=== PATIENT | male | born 1970 | race Two or more races ===

== ENCOUNTER 2020-03-15 13:03 | Inpatient (IN) | payer BC, OTHER ==
[~2020-03-15] VITALS: Ht 175.3 cm; Wt 98.6 kg
[2020-03-15 13:41] LABS: Urine Bacteria NONE SEEN /hpf (None Seen); Urine Blood Negative /uL (Negative); Urine Specific Gravity 1.023 (1.001-1.035); Urine WBC 4 /hpf (0 - 3)
[2020-03-15 13:51] LABS: Basophils # (auto) 0.2 10 ^3/uL (0-0.2); Basophils % (auto) 1.1 % (0.0-2.0); Eosinophils # (auto) 0.2 10 ^3/uL (0-0.8); Eosinophils % (auto) 1.4 % (0.0-7.0); Hematocrit 41.2 % (41.0-53.0); Lymphocytes # (auto) 1.4 10 ^3/uL (0.4-5.4); Lymphocytes % (auto) 8.7 % (10.0-50.0); Mean Corpuscular Hemoglobin 29.4 pg (28.0-32.0); Mean Corpuscular Volume 86.5 fL (80.0-100.0); Monocytes # (auto) 2.3 10 ^3/uL (0-1.3); Monocytes % (auto) 13.8 % (0.0-12.0); Neutrophils # (auto) 12.3 10 ^3/uL (1.6-8.6); Nucleated Red Blood Cells % 0.1 %; Platelet Count (auto) 200 10^3/uL (140-450); Red Blood Cells 4.77 10^6/uL (4.5-5.90); Red Cell Distribution Width 14.3 % (11.8-14.3); White Blood Cell 16.4 10^3/uL (4.4-10.8)
[2020-03-15 14:10] LABS: Albumin 2.9 g/dL (3.4-5.0); BUN/Creatinine Ratio 9.6; Calcium 9.3 mg/dL (8.5-10.1); Potassium 3.9 mmol/L (3.5-5.1)
[2020-03-15 14:13] LABS: Bilirubin, Total 7.1 mg/dL (0.2-1.0)
[2020-03-15] MEDS ORDERED: GASTROGRAFIN 30 ML SOL ONE (14:27)
[2020-03-15] MEDS ORDERED: MORPHINE SULFATE 4 MG/ML SYR/VIAL IV ONE (14:45)
[2020-03-15] MEDS ORDERED: ONDANSETRON HCL 4 MG/2 ML VIAL IV ONE (14:45)
[2020-03-15 15:43] LABS: Cholesterol 177 mg/dL (< 200); HDL Cholesterol 10 mg/dL (40-59); LDL Cholesterol 130 mg/dL (< 100); Lipase 173 U/L (73-393); Triglycerides 191 mg/dL (< 150)
[2020-03-15] MEDS ORDERED: IOHEXOL 300 MG/ML 100ML BOTTLE IJ ONE (16:31)
[2020-03-15] MEDS ORDERED: MORPHINE SULF INJ 2 MG/ML SYRINGE 1ML IV PRN ×2 (18:00→18:15)
[2020-03-15] MEDS ORDERED: NITROGLYCERIN 0.4 MG SL TAB SL PRN ×2 (18:00→18:15)
[2020-03-15] MEDS ORDERED: ACETAMINOPHEN 325 MG TAB PO PRN (18:15)
[2020-03-15] MEDS ORDERED: HYDROmorphone HCL 2 MG/ML VL IV PRN (18:15)
[2020-03-15] MEDS ORDERED: PANTOPRAZOLE 40 MG/10 ML VIAL INJ IV ONE (18:15)
[2020-03-15] MEDS ORDERED: LORazepam 0.5 MG TAB PO PRN (18:15)
[2020-03-15] MEDS ORDERED: DOCUSATE SOD 100 MG CAP PO PRN (18:15)
[2020-03-15] MEDS ORDERED: ONDANSETRON HCL 4 MG/2 ML VIAL IV PRN (18:15)
[2020-03-15] MEDS ORDERED: ALUM & MAG HYDROX-SIMETH LIQ(MAALOX) 30 ML PO PRN (18:15)
[2020-03-15] MEDS ORDERED: SODIUM CHLORIDE 0.9% 1,000 ML IV SCH (18:15)
[2020-03-15 18:59] LABS: Amphetamine Screen, Urine NEGATIVE (NEGATIVE); Barbiturate Scree,Urine NEGATIVE (NEGATIVE); Benzodiazephine Screen, Urine POSITIVE (NEGATIVE); Cannabinoid Screen, Urine NEGATIVE (NEGATIVE); Cocaine Screen, Urine NEGATIVE (NEGATIVE); Opiate Scree,Urine NEGATIVE (NEGATIVE); Phencyclidine Screen, Urine NEGATIVE (NEGATIVE)
[2020-03-15 20:58] VITALS: BP 130/86
[2020-03-15 22:00] VITALS: BP 130/80
[2020-03-15] MEDS ORDERED: SUCR1TAB22 PO (22:10)
[2020-03-15] MEDS ORDERED: LISI2.5T47 PO (22:10)
[2020-03-15] MEDS ORDERED: PANT1INJ3 PO (22:10)
[2020-03-15] MEDS ORDERED: SIMV-8 PO (22:10)
[2020-03-15] MEDS ORDERED: ALPR0.5T PO (22:10)
[2020-03-15] MEDS ORDERED: SERT50TA PO (22:10)
[2020-03-15] MEDS ORDERED: TRAZ50TA2 PO (22:10)
[2020-03-15] MEDS ORDERED: METO-6 PO (22:10)
[2020-03-15] MEDS ORDERED: TEMA30CA5 PO (22:10)
[2020-03-15] MEDS ORDERED: TEMAZEPAM 15 MG CAP PO PRN (22:15)
[2020-03-16] MEDS: HYDROcodone-ACET 5/325MG TAB PO PRN ×2 (01:37→05:40)
[2020-03-16 05:00] VITALS: BP 126/74
[2020-03-16 08:00] VITALS: BP 125/79
[2020-03-16] MEDS ORDERED: ENOXAPARIN SOD 40 MG/0.4 ML SYRINGE SC SCH (10:00)
[2020-03-16] MEDS ORDERED: PANTOPRAZOLE 40 MG/10 ML VIAL INJ IV SCH (10:00)
[2020-03-16] MEDS ORDERED: MORPHINE SULF 15mg ER tab PO ONE (11:00)
[2020-03-16] MEDS ORDERED: HYDROmorphone HCL 2 MG/ML VL IV PRN (11:00)
[2020-03-16] MEDS ORDERED: HYDROmorphone HCL 2 MG/ML VL IV ONE (11:00)
[2020-03-16] MEDS ORDERED: MORPHINE SULF 15mg ER tab PO SCH (22:00)
[2020-03-17] MEDS ORDERED: PANT40T PO (17:36)
[2020-03-17] MEDS ORDERED: METO25TA93 PO (17:38)
[2020-03-17] MEDS ORDERED: ASPI-498 PO (17:38)
[2020-03-17] MEDS ORDERED: GABA-339 PO (17:39)
[2020-03-17] MEDS ORDERED: LISI-285 PO (17:44)
[2020-03-17] MEDS ORDERED: DOCU-80 PO (17:51)
== END 2020-03-16 12:30 | disposition home or self-care (01) | DRG 436 ==
LOC: ER 13:03 → TELE 17:59 → TELE-EAST 20:58
PROVIDERS: ADMIT Hospitalist; ATTEND Internal Medicine
DX: C25.0 Malignant neoplasm of head of pancreas (principal); C78.7 Secondary malignant neoplasm of liver and intrahepatic bile duct; K80.21 Calculus of gallbladder without cholecystitis with obstruction; D73.5 Infarction of spleen; E11.9 Type 2 diabetes mellitus without complications; E78.5 Hyperlipidemia, unspecified; I10 Essential (primary) hypertension; K21.9 Gastro-esophageal reflux disease without esophagitis; Z20.822 Contact with and (suspected) exposure to COVID-19; E66.9 Obesity, unspecified; Z68.32 Body mass index [BMI] 32.0-32.9, adult
CPT/HCPCS: 36415; 74177; 80053; 80061; 80307; 81001; 82150; 83036; 83690; 84154; 84484; 85025; 86301; 86304; 87040; 87086; 87426; 96374; 96375; 96376; C9113; G0378; J2405

== ENCOUNTER 2020-03-17 09:20 | Inpatient (IN) | payer BC ==
[2020-03-17] VITALS (10 sets, daily range): BP systolic 101–161; BP diastolic 62–83
[~2020-03-17] VITALS: Ht 175.3 cm; Wt 98.0 kg
[~2020-03-17 09:20] MED LIST: ALPR0.5T PO; LISI2.5T47 PO; METO-6 PO; PANT1INJ3 PO; SERT50TA PO; SIMV-8 PO; SUCR1TAB22 PO; TEMA30CA5 PO; TRAZ50TA2 PO
[2020-03-17] MEDS ORDERED: DOCUSATE SOD 100 MG CAP PO PRN (10:00)
[2020-03-17] MEDS ORDERED: NITROGLYCERIN 0.4 MG SL TAB SL PRN (10:00)
[2020-03-17] MEDS ORDERED: HYDROmorphone HCL 2 MG/ML VL IV PRN ×4 (10:00→20:30)
[2020-03-17] MEDS ORDERED: ALUM & MAG HYDROX-SIMETH LIQ(MAALOX) 30 ML PO PRN (10:00)
[2020-03-17] MEDS ORDERED: MORPHINE SULF INJ 2 MG/ML SYRINGE 1ML IV PRN ×2 (10:00)
[2020-03-17] MEDS ORDERED: DEXTROSE (50%) 50ML SYRG IV PRN (10:00)
[2020-03-17] MEDS ORDERED: ONDANSETRON HCL 4 MG/2 ML VIAL IV PRN (10:00)
[2020-03-17] MEDS ORDERED: IOHEXOL 300 MG/ML 100ML BOTTLE IJ ONE ×2 (10:07→14:20)
[2020-03-17] MEDS ORDERED: oxyCODONE HCL 5MG TAB PO PRN (10:15)
[2020-03-17 10:20] LABS: Basophils # (auto) 0.1 10 ^3/uL (0-0.2); Basophils % (auto) 1.1 % (0.0-2.0); Eosinophils # (auto) 0.4 10 ^3/uL (0-0.8); Eosinophils % (auto) 3.4 % (0.0-7.0); Hematocrit 38.1 % (41.0-53.0); Hemoglobin 12.9 g/dL (13.5-17.5); Lymphocytes # (auto) 1.9 10 ^3/uL (0.4-5.4); Lymphocytes % (auto) 15.4 % (10.0-50.0); Mean Corpuscular Hemoglobin 29.5 pg (28.0-32.0); Mean Corpuscular Hgb Conc. 33.9 g/dL (32.0-36.0); Monocytes # (auto) 1.8 10 ^3/uL (0-1.3); Monocytes % (auto) 14.3 % (0.0-12.0); Neutrophils # (auto) 8.1 10 ^3/uL (1.6-8.6); Neutrophils % (auto) 65.8 % (37.0-80.0); Platelet Count (auto) 183 10^3/uL (140-450); Red Blood Cells 4.38 10^6/uL (4.5-5.90); Red Cell Distribution Width 14.1 % (11.8-14.3); White Blood Cell 12.3 10^3/uL (4.4-10.8)
[2020-03-17 10:33] LABS: INR 1.37 (0.9-1.15); Partial Thromboplastin Time 29.1 sec (23.0-31.2)
[2020-03-17 10:47] LABS: Albumin 2.6 g/dL (3.4-5.0); Calcium 8.5 mg/dL (8.5-10.1); Magnesium 2.4 mg/dL (1.6-2.6); Potassium 3.9 mmol/L (3.5-5.1)
[2020-03-17 10:51] LABS: BUN/Creatinine Ratio 11.2; Bilirubin, Direct 6.3 mg/dL (0-0.2); Phosphorus 3.4 mg/dL (2.5-4.90); Total Protein 6.7 g/dL (6.4-8.2)
[2020-03-17] MEDS ORDERED: MIDAZOLAM HCL 1MG/1ML-2 ML VIAL IV ONE (11:15)
[2020-03-17] MEDS ORDERED: fentaNYL CITRATE 100 MCG/2 ML VL IV ONE (11:15)
[2020-03-17] MEDS: ACCU-CHEK COMFORT CURVE STRIP VI SCH ×3 (11:30→22:00)
[2020-03-17] MEDS: InsuLIN REG 1unit/0.01ml Soln (100units/ml) SC SCH ×3 (11:30→22:00)
[2020-03-17] MEDS ORDERED: LIDOCAINE 2%HCL (LOCAL ANESTH.) INJ 20ML MDV ONE ×2 (11:35→15:37)
[2020-03-17] MEDS ORDERED: GELATIN 1 SPONGE SIZE 50 TOP ONE (12:33)
[2020-03-17] MEDS: SODIUM CHLOR 0.9% PF (SALINE LOCK) 10ML VIAL/SYR IV SCH ×2 (14:00→22:02)
[2020-03-17] MEDS ORDERED: NALOXONE HCL 0.4 MG/ML VIAL ONE (14:27)
[2020-03-17] MEDS ORDERED: SODIUM CHLORIDE LOCK 10 ML ONE (14:27)
[2020-03-17] MEDS ORDERED: FLUMAZENIL 0.1 MG/ML INJ 10ML MDV IV ONE (14:27)
[2020-03-17] MEDS ORDERED: diphenhdrAMINE HCL 50 MG/1 ML VL ONE (14:28)
[2020-03-17] MEDS ORDERED: fentaNYL CITRATE 100 MCG/2 ML VL ONE (14:28)
[2020-03-17] MEDS: MIDAZOLAM HCL 5 MG/ML-1ML VIAL ONE ×3 (15:23→15:52)
[2020-03-17] MEDS ORDERED: HEPARIN 1,000 UNITS/ml 1ML VIAL ONE (15:28)
[2020-03-17] MEDS ORDERED: ceFAZolin 1GM VL ONE (15:40)
[2020-03-17] MEDS ORDERED: PANT40T PO (17:36)
[2020-03-17] MEDS ORDERED: METO25TA93 PO (17:38)
[2020-03-17] MEDS ORDERED: ASPI-498 PO (17:38)
[2020-03-17] MEDS ORDERED: GABA-339 PO (17:39)
[2020-03-17] MEDS ORDERED: LISI-285 PO (17:44)
[2020-03-17] MEDS ORDERED: DOCU-80 PO (17:51)
[2020-03-17] MEDS: MORPHINE SULF INJ 2 MG/ML SYRINGE 1ML IV PRN (20:56)
[2020-03-17] MEDS ORDERED: ENOXAPARIN SOD 150 MG/1 ML SYRINGE SC SCH (22:00)
[2020-03-17] MEDS: SERTRALINE HCL 50 MG TAB PO SCH (22:00)
[2020-03-17] MEDS: TEMAZEPAM 15 MG CAP PO PRN (22:04)
[2020-03-17] MEDS: oxyCODONE HCL 5MG TAB PO PRN (22:07)
[2020-03-17] MEDS ORDERED: ACETAMINOPHEN 325 MG TAB PO PRN (23:15)
[2020-03-18 00:14] VITALS: BP 107/70
[2020-03-18 05:00] VITALS: BP 141/64
[2020-03-18] MEDS: oxyCODONE HCL 5MG TAB PO PRN ×3 (05:30→19:47)
[2020-03-18] MEDS: SODIUM CHLOR 0.9% PF (SALINE LOCK) 10ML VIAL/SYR IV SCH ×3 (06:00→21:42)
[2020-03-18 06:07] LABS: Basophils # (auto) 0 10 ^3/uL (0-0.2); Basophils % (auto) 0.3 % (0.0-2.0); Eosinophils # (auto) 0.4 10 ^3/uL (0-0.8); Eosinophils % (auto) 2.7 % (0.0-7.0); Hemoglobin 11.5 g/dL (13.5-17.5); Lymphocytes # (auto) 2.2 10 ^3/uL (0.4-5.4); Lymphocytes % (auto) 15.6 % (10.0-50.0); Mean Corpuscular Hemoglobin 29.2 pg (28.0-32.0); Mean Corpuscular Volume 86.1 fL (80.0-100.0); Monocytes # (auto) 2.1 10 ^3/uL (0-1.3); Monocytes % (auto) 14.7 % (0.0-12.0); Neutrophils # (auto) 9.4 10 ^3/uL (1.6-8.6); Neutrophils % (auto) 66.7 % (37.0-80.0); Platelet Count (auto) 167 10^3/uL (140-450); Red Blood Cells 3.95 10^6/uL (4.5-5.90); Red Cell Distribution Width 13.9 % (11.8-14.3); White Blood Cell 14.1 10^3/uL (4.4-10.8)
[2020-03-18 06:12] LABS: Albumin 2.2 g/dL (3.4-5.0); Potassium 3.5 mmol/L (3.5-5.1)
[2020-03-18 06:16] LABS: BUN/Creatinine Ratio 13.2; Bilirubin, Total 7.5 mg/dL (0.2-1.0); Total Protein 5.8 g/dL (6.4-8.2)
[2020-03-18] MEDS: ACCU-CHEK COMFORT CURVE STRIP VI SCH ×4 (07:00→21:43)
[2020-03-18] MEDS: InsuLIN REG 1unit/0.01ml Soln (100units/ml) SC SCH ×4 (07:00→21:43)
[2020-03-18 08:00] VITALS: BP 110/72
[2020-03-18] MEDS: MORPHINE SULF INJ 2 MG/ML SYRINGE 1ML IV PRN ×3 (10:43→22:08)
[2020-03-18] MEDS ORDERED: ENOXAPARIN SOD 100 MG/1 ML SYRINGE SC ONE (10:45)
[2020-03-18 16:00] VITALS: BP 138/84
[2020-03-18 21:38] VITALS: BP 120/65
[2020-03-18] MEDS: SERTRALINE HCL 50 MG TAB PO SCH (21:42)
[2020-03-18] MEDS: ENOXAPARIN SOD 100 MG/1 ML SYRINGE SC SCH (21:43)
[2020-03-18] MEDS: TEMAZEPAM 15 MG CAP PO PRN (21:44)
[2020-03-19] MEDS: oxyCODONE HCL 5MG TAB PO PRN ×5 (02:19→20:07)
[2020-03-19] MEDS: MORPHINE SULF INJ 2 MG/ML SYRINGE 1ML IV PRN ×5 (04:35→22:39)
[2020-03-19 05:00] VITALS: BP 117/75
[2020-03-19] MEDS: SODIUM CHLOR 0.9% PF (SALINE LOCK) 10ML VIAL/SYR IV SCH ×3 (05:14→22:02)
[2020-03-19] MEDS: ACCU-CHEK COMFORT CURVE STRIP VI SCH ×4 (06:45→22:02)
[2020-03-19] MEDS: InsuLIN REG 1unit/0.01ml Soln (100units/ml) SC SCH ×4 (06:50→22:13)
[2020-03-19 08:00] VITALS: BP 123/71
[2020-03-19] MEDS: ENOXAPARIN SOD 100 MG/1 ML SYRINGE SC SCH ×2 (10:00→22:03)
[2020-03-19 11:47] LABS: Basophils # (auto) 0.1 10 ^3/uL (0-0.2); Basophils % (auto) 0.5 % (0.0-2.0); Eosinophils # (auto) 0.4 10 ^3/uL (0-0.8); Eosinophils % (auto) 3.3 % (0.0-7.0); Hemoglobin 11.3 g/dL (13.5-17.5); Lymphocytes # (auto) 1.8 10 ^3/uL (0.4-5.4); Lymphocytes % (auto) 13.3 % (10.0-50.0); Mean Corpuscular Hemoglobin 29.5 pg (28.0-32.0); Mean Corpuscular Hgb Conc. 34.3 g/dL (32.0-36.0); Mean Corpuscular Volume 85.9 fL (80.0-100.0); Neutrophils # (auto) 9.2 10 ^3/uL (1.6-8.6); Neutrophils % (auto) 67.9 % (37.0-80.0); Platelet Count (auto) 184 10^3/uL (140-450); Red Blood Cells 3.84 10^6/uL (4.5-5.90); Red Cell Distribution Width 14.3 % (11.8-14.3); White Blood Cell 13.5 10^3/uL (4.4-10.8)
[2020-03-19 11:59] LABS: Albumin 2.1 g/dL (3.4-5.0); Potassium 4.1 mmol/L (3.5-5.1)
[2020-03-19 12:05] LABS: BUN/Creatinine Ratio 14.1; Bilirubin, Total 8.9 mg/dL (0.2-1.0); Total Protein 5.8 g/dL (6.4-8.2)
[2020-03-19 16:00] VITALS: BP 125/87
[2020-03-19 21:38] VITALS: BP 127/81
[2020-03-19] MEDS: SERTRALINE HCL 50 MG TAB PO SCH (22:03)
[2020-03-19] MEDS: TEMAZEPAM 15 MG CAP PO PRN (22:12)
[2020-03-20] MEDS: oxyCODONE HCL 5MG TAB PO PRN ×2 (04:08→10:15)
[2020-03-20 05:04] VITALS: BP 120/63
[2020-03-20] MEDS: SODIUM CHLOR 0.9% PF (SALINE LOCK) 10ML VIAL/SYR IV SCH (06:14)
[2020-03-20] MEDS: ACCU-CHEK COMFORT CURVE STRIP VI SCH ×2 (06:30→11:30)
[2020-03-20] MEDS: InsuLIN REG 1unit/0.01ml Soln (100units/ml) SC SCH ×2 (06:31→12:22)
[2020-03-20] MEDS: MORPHINE SULF INJ 2 MG/ML SYRINGE 1ML IV PRN (06:34)
[2020-03-20 06:47] LABS: Basophils # (auto) 0.1 10 ^3/uL (0-0.2); Basophils % (auto) 0.8 % (0.0-2.0); Eosinophils # (auto) 0.7 10 ^3/uL (0-0.8); Eosinophils % (auto) 5.6 % (0.0-7.0); Hematocrit 33.5 % (41.0-53.0); Hemoglobin 11.5 g/dL (13.5-17.5); Lymphocytes # (auto) 2.2 10 ^3/uL (0.4-5.4); Lymphocytes % (auto) 17.9 % (10.0-50.0); Mean Corpuscular Hemoglobin 29.6 pg (28.0-32.0); Mean Corpuscular Hgb Conc. 34.3 g/dL (32.0-36.0); Mean Corpuscular Volume 86.4 fL (80.0-100.0); Monocytes # (auto) 1.6 10 ^3/uL (0-1.3); Neutrophils # (auto) 7.7 10 ^3/uL (1.6-8.6); Neutrophils % (auto) 62.7 % (37.0-80.0); Nucleated Red Blood Cells % 0.1 %; Platelet Count (auto) 213 10^3/uL (140-450); Red Blood Cells 3.88 10^6/uL (4.5-5.90); Red Cell Distribution Width 14.1 % (11.8-14.3); White Blood Cell 12.3 10^3/uL (4.4-10.8)
[2020-03-20 07:20] LABS: Albumin 2.2 g/dL (3.4-5.0); BUN/Creatinine Ratio 14.3; Bilirubin, Total 9.4 mg/dL (0.2-1.0); Calcium 8.4 mg/dL (8.5-10.1)
[2020-03-20 08:00] VITALS: BP 142/83
[2020-03-20] MEDS: ENOXAPARIN SOD 100 MG/1 ML SYRINGE SC SCH (10:13)
[2020-03-20 14:45] VITALS: BP 142/83
[2020-03-20 16:03] LABS: Hepatitis B Surface Antibody Negative
[2020-03-20 16:34] LABS: Hepatitis A Total Antibody Negative
[2020-03-20 16:54] LABS: Hepatitis B Core Total AB Negative
[2020-03-20 16:55] LABS: Hepatitis C Antibody Negative (Negative)
[2020-03-20 16:56] LABS: Hepatitis B Surface Antigen Negative (Negative)
== END 2020-03-20 13:15 | disposition home or self-care (01) | DRG 435 ==
LOC: CT 09:20 → CENTRAL 09:42
PROVIDERS: ADMIT Internal Medicine; ATTEND Internal Medicine
PROC: 02HV33Z Insertion of Infusion Device into Superior Vena Cava, Percutaneous Approach (ICD-10-PCS; 2020-03-17)
PROC: B5181ZA Fluoroscopy of Superior Vena Cava using Low Osmolar Contrast, Guidance (ICD-10-PCS; 2020-03-17)
PROC: 0FB03ZX Excision of Liver, Percutaneous Approach, Diagnostic (ICD-10-PCS; principal; 2020-03-17 15:00)
DX: C25.9 Malignant neoplasm of pancreas, unspecified (principal); E43 Unspecified severe protein-calorie malnutrition; I26.99 Other pulmonary embolism without acute cor pulmonale; K83.1 Obstruction of bile duct; J96.00 Acute respiratory failure, unspecified whether with hypoxia or hypercapnia; D68.59 Other primary thrombophilia; R07.81 Pleurodynia; E11.65 Type 2 diabetes mellitus with hyperglycemia; I10 Essential (primary) hypertension; Z79.4 Long term (current) use of insulin; Z85.46 Personal history of malignant neoplasm of prostate; Z85.828 Personal history of other malignant neoplasm of skin; Z68.31 Body mass index [BMI] 31.0-31.9, adult
CPT/HCPCS: 10022; 36415; 71045; 71260; 74150; 74181; 76000; 76942; 77012; 80053; 82105; 82248; 82962; 83735; 84100; 85025; 85610; 85730; 86704; 86706; 86708; 86803; 87340; 93306; 93970; C1788; G0378; J0690; J1815; J2250; J2405

== ENCOUNTER 2020-03-27 09:51 | Emergency (ER) | payer BC ==
[~2020-03-27] VITALS: Ht 175.3 cm; Wt 90.7 kg
[~2020-03-27 09:51] MED LIST changes: +ASPI-498 PO; +DOCU-80 PO; +GABA-339 PO; +LISI-285 PO; -LISI2.5T47 PO; -METO-6 PO; +METO25TA93 PO; -PANT1INJ3 PO; +PANT40T PO; -SIMV-8 PO; -TRAZ50TA2 PO
[2020-03-27] MEDS ORDERED: MORPHINE SULFATE 4 MG/ML SYR/VIAL IV ONE (10:30)
[2020-03-27] MEDS ORDERED: ONDANSETRON HCL 4 MG/2 ML VIAL IV ONE (10:30)
[2020-03-27 10:34] LABS: Hematocrit 38.2 % (41.0-53.0); Hemoglobin 12.8 g/dL (13.5-17.5); Mean Corpuscular Hemoglobin 29.5 pg (28.0-32.0); Mean Corpuscular Hgb Conc. 33.6 g/dL (32.0-36.0); Mean Corpuscular Volume 87.8 fL (80.0-100.0); Red Blood Cells 4.35 10^6/uL (4.5-5.90); Red Cell Distribution Width 16.2 % (11.8-14.3); White Blood Cell 15.3 10^3/uL (4.4-10.8)
[2020-03-27 10:48] LABS: Basophils % (manual) 0 (0.0-2.0); Blast Cells 0; Myelocytes % 0; Promyelocytes % 0; Reactive Lymphocytes 0
[2020-03-27 10:53] LABS: Albumin 2.2 g/dL (3.4-5.0); Anion Gap 11 (5-15); Blood Urea Nitrogen 11 mg/dL (7-18); Calcium 8.8 mg/dL (8.5-10.1); Carbon Dioxide 22 mmol/L (21-32); Chloride 97 mmol/L (98-107); Glucose 110 mg/dL (74-106); Lipase 72 U/L (73-393); Potassium 4.4 mmol/L (3.5-5.1); Sodium 130 mmol/L (136-145)
[2020-03-27 10:59] LABS: Alanine Aminotransferase 82 U/L (16-61); Alkaline Phosphatase 899 U/L (45-117); Aspartate Aminotransferase 155 U/L (15-37); BUN/Creatinine Ratio 15.5; GFR African American 151 mL/min; GFR Non-African American 125 mL/min; Total Protein 6.7 g/dL (6.4-8.2)
[2020-03-27 11:00] LABS: INR 1.15 (0.9-1.15); Partial Thromboplastin Time 31.7 sec (23.0-31.2)
[2020-03-27 11:14] VITALS: BP 88/58
[2020-03-27] MEDS ORDERED: cefTRIAXone 1GM/50ML D5W 50 ML IV ONE (11:30)
[2020-03-27 11:41] LABS: Band Neutrophils % (manual) 1; Eosinophils % (manual) 7 (0-7); Lymphocytes % (manual) 9 (10.0-50.0); Metamyelocytes % 1; Monocytes % (manual) 9 (0-12)
== END 2020-03-27 11:45 | disposition home or self-care (01) ==
LOC: ER 09:51
DX: C25.9 Malignant neoplasm of pancreas, unspecified (principal); D72.829 Elevated white blood cell count, unspecified; I10 Essential (primary) hypertension; E78.5 Hyperlipidemia, unspecified; Z79.82 Long term (current) use of aspirin; Z79.899 Other long term (current) drug therapy
CPT/HCPCS: 36415; 71045; 74176; 80053; 83690; 84484; 85007; 85027; 85610; 85730; 86301; 93005; 96365; 96375; 99285; J0696; J2270; J2405

== ENCOUNTER → 2020-05-08 | Outpatient (CLI) | payer BC ==
[2020-05-08 10:40] LABS: Basophils # (auto) 0.1 10 ^3/uL (0-0.2); Basophils % (auto) 0.9 % (0.0-2.0); Eosinophils # (auto) 0.2 10 ^3/uL (0-0.8); Eosinophils % (auto) 1.9 % (0.0-7.0); Hematocrit 36.6 % (41.0-53.0); Hemoglobin 12.2 g/dL (13.5-17.5); Lymphocytes # (auto) 1.7 10 ^3/uL (0.4-5.4); Mean Corpuscular Hemoglobin 30.1 pg (28.0-32.0); Mean Corpuscular Hgb Conc. 33.3 g/dL (32.0-36.0); Mean Corpuscular Volume 90.4 fL (80.0-100.0); Monocytes # (auto) 1.2 10 ^3/uL (0-1.3); Monocytes % (auto) 15.1 % (0.0-12.0); Neutrophils # (auto) 4.9 10 ^3/uL (1.6-8.6); Neutrophils % (auto) 61.1 % (37.0-80.0); Nucleated Red Blood Cells % 0.1 %; Platelet Count (auto) 110 10^3/uL (140-450); Red Blood Cells 4.05 10^6/uL (4.5-5.90); White Blood Cell 8.1 10^3/uL (4.4-10.8)
[2020-05-08 10:57] LABS: INR 1.21 (0.9-1.15); Partial Thromboplastin Time 27.3 sec (23.0-31.2)
== END | disposition home or self-care (01) ==
LOC: LAB 10:06
PROVIDERS: ATTEND Internal Medicine
DX: Z01.812 Encounter for preprocedural laboratory examination (principal)
CPT/HCPCS: 36415; 83986; 85025; 85610; 85730; 87205; 89051

== ENCOUNTER → 2020-05-08 | Outpatient (CLI) | payer BC | END | disposition home or self-care (01) | LOC: US 12:45 | PROVIDERS: ATTEND Internal Medicine | DX: C25.9 Malignant neoplasm of pancreas, unspecified (principal); C78.7 Secondary malignant neoplasm of liver and intrahepatic bile duct; E11.9 Type 2 diabetes mellitus without complications; F41.9 Anxiety disorder, unspecified; Z20.822 Contact with and (suspected) exposure to COVID-19; Z80.42 Family history of malignant neoplasm of prostate; Z87.891 Personal history of nicotine dependence; Z80.8 Family history of malignant neoplasm of other organs or systems | CPT/HCPCS: 49083; 76700; C1729; 10022; 76942 ==

== ENCOUNTER → 2020-05-18 | Outpatient (CLI) | payer BC ==
[~2020-05-18] MED LIST changes: +FENT25DI2 TD; +INSLANTI SC; +LACT10SO3 PO; +LORA0.5T20 PO; +NUTR-345 OR; +NYS5LQ MT; +ONDA-144 PO; +OXY5T PO; +RIVA20TA PO; +SERT100T PO
[2020-05-18 09:59] LABS: Hemoglobin 12.5 g/dL (13.5-17.5)
[2020-05-18 10:05] LABS: Hematocrit 37.2 % (41.0-53.0); Mean Corpuscular Hemoglobin 29.8 pg (28.0-32.0); Mean Corpuscular Hgb Conc. 33.6 g/dL (32.0-36.0); Mean Corpuscular Volume 88.8 fL (80.0-100.0); Platelet Count (auto) 35 10^3/uL (140-450); Red Blood Cells 4.19 10^6/uL (4.5-5.90); Red Cell Distribution Width 18.9 % (11.8-14.3); White Blood Cell 16.1 10^3/uL (4.4-10.8)
[2020-05-18 10:12] LABS: Basophils % (manual) 0 (0.0-2.0); Blast Cells 0; Myelocytes % 0; Promyelocytes % 0; Reactive Lymphocytes 0
[2020-05-18 10:30] LABS: Band Neutrophils % (manual) 21; Eosinophils % (manual) 3 (0-7); Lymphocytes % (manual) 11 (10.0-50.0); Metamyelocytes % 7; Monocytes % (manual) 7 (0-12)
[2020-05-18 10:47] LABS: INR 1.29 (0.9-1.15); Partial Thromboplastin Time 27.1 sec (23.0-31.2)
== END | disposition home or self-care (01) ==
LOC: LAB 09:10
PROVIDERS: ATTEND Internal Medicine
DX: Z01.812 Encounter for preprocedural laboratory examination (principal)
CPT/HCPCS: 36415; 85007; 85027; 85610; 85730

== ENCOUNTER 2020-05-19 09:31 | Inpatient (IN) | payer BC ==
[~2020-05-19] VITALS: Ht 175.3 cm; Wt 95.7 kg
[~2020-05-19 09:31] MED LIST changes: -FENT25DI2 TD; -INSLANTI SC; -LACT10SO3 PO; -LORA0.5T20 PO; -NUTR-345 OR; -NYS5LQ MT; -ONDA-144 PO; -OXY5T PO; -RIVA20TA PO; -SERT100T PO
[2020-05-19 10:17] LABS: Hemoglobin 12.7 g/dL (13.5-17.5)
[2020-05-19 10:19] LABS: Hematocrit 37.9 % (41.0-53.0); Mean Corpuscular Hemoglobin 29.4 pg (28.0-32.0); Mean Corpuscular Hgb Conc. 33.4 g/dL (32.0-36.0); Mean Corpuscular Volume 88.1 fL (80.0-100.0); Platelet Count (auto) 41 10^3/uL (140-450); Red Cell Distribution Width 18.5 % (11.8-14.3); White Blood Cell 15.2 10^3/uL (4.4-10.8)
[2020-05-19 10:31] LABS: Albumin 2.2 g/dL (3.4-5.0); Anion Gap 10 (5-15); Blood Urea Nitrogen 12 mg/dL (7-18); Calcium 9.3 mg/dL (8.5-10.1); Carbon Dioxide 24 mmol/L (21-32); Chloride 105 mmol/L (98-107); Glucose 137 mg/dL (74-106); Potassium 3.8 mmol/L (3.5-5.1); Sodium 139 mmol/L (136-145)
[2020-05-19 10:38] LABS: INR 1.28 (0.9-1.15); Partial Thromboplastin Time 28.5 sec (23.0-31.2)
[2020-05-19 10:49] LABS: Alanine Aminotransferase 50 U/L (16-61); Alkaline Phosphatase 509 U/L (45-117); Aspartate Aminotransferase 53 U/L (15-37); BUN/Creatinine Ratio 19.7; Bilirubin, Total 2.5 mg/dL (0.2-1.0); GFR African American 180 mL/min; GFR Non-African American 149 mL/min; Total Protein 5.6 g/dL (6.4-8.2)
[2020-05-19 10:55] LABS: Basophils % (manual) 0 (0.0-2.0); Blast Cells 0; Metamyelocytes % 0; Myelocytes % 0; Promyelocytes % 0
[2020-05-19 10:57] LABS: Band Neutrophils % (manual) 7; Eosinophils % (manual) 2 (0-7); Lymphocytes % (manual) 17 (10.0-50.0); Monocytes % (manual) 6 (0-12); Reactive Lymphocytes 2
[2020-05-19] MEDS ORDERED: NITROGLYCERIN 0.4 MG SL TAB SL PRN ×2 (11:15→13:15)
[2020-05-19] MEDS ORDERED: MORPHINE SULF INJ 2 MG/ML SYRINGE 1ML IV PRN ×3 (11:15→13:15)
[2020-05-19] MEDS ORDERED: NUTR-345 OR (12:04)
[2020-05-19] MEDS ORDERED: INSLANTI SC (12:04)
[2020-05-19] MEDS ORDERED: LACT10SO3 PO (12:04)
[2020-05-19] MEDS ORDERED: SERT100T PO (12:04)
[2020-05-19] MEDS ORDERED: LORA0.5T20 PO (12:04)
[2020-05-19] MEDS ORDERED: FENT25DI2 TD (12:04)
[2020-05-19] MEDS ORDERED: ONDA-144 PO (12:04)
[2020-05-19] MEDS ORDERED: RIVA20TA PO (12:04)
[2020-05-19] MEDS ORDERED: OXY5T PO (12:04)
[2020-05-19] MEDS ORDERED: NYS5LQ MT (12:04)
[2020-05-19 12:27] VITALS: BP_SYST 120; BP_SYST 128; BP_DIAS 66; BP_DIAS 85
[2020-05-19 13:00] VITALS: BP 125/72
[2020-05-19] MEDS ORDERED: TEMAZEPAM 15 MG CAP PO PRN (13:15)
[2020-05-19] MEDS ORDERED: DEXTROSE (50%) 50ML SYRG IV ONE (13:15)
[2020-05-19] MEDS ORDERED: ACETAMINOPHEN 325 MG TAB PO PRN (13:15)
[2020-05-19] MEDS ORDERED: ONDANSETRON HCL 4 MG/2 ML VIAL IV PRN (13:15)
[2020-05-19] MEDS ORDERED: LACTULOSE 20Gm/30ML SOLN PO PRN (13:15)
[2020-05-19] MEDS ORDERED: fentaNYL 25MCG/HR 25 MCG/HR PAT TD SCH (13:15)
[2020-05-19] MEDS ORDERED: HYDROcodone-ACET 5/325MG TAB PO PRN (13:15)
[2020-05-19] MEDS: SODIUM CHLOR 0.9% PF (SALINE LOCK) 10ML VIAL/SYR IV SCH ×2 (14:04→22:07)
[2020-05-19] MEDS ORDERED: DEXTROSE (50%) 50ML SYRG IV PRN (14:15)
[2020-05-19 16:26] VITALS: BP 127/75
[2020-05-19] MEDS: ACCU-CHEK COMFORT CURVE STRIP VI SCH ×2 (16:50→22:07)
[2020-05-19] MEDS ORDERED: InsuLIN REG 1unit/0.01ml Soln (100units/ml) SC ONE (17:00)
[2020-05-19] MEDS ORDERED: ACCU-CHEK COMFORT CURVE STRIP VI ONE (17:00)
[2020-05-19] MEDS: Glucerna Carbsteady SHAKE Chocolate 8oz PO SCH (18:30)
[2020-05-19] MEDS: InsuLIN REG 1unit/0.01ml Soln (100units/ml) SC SCH ×2 (18:32→22:16)
[2020-05-19 18:57] LABS: Urine Bacteria NONE SEEN /hpf (None Seen); Urine Blood Negative /uL (Negative); Urine Mucus MANY (None Seen); Urine Specific Gravity 1.029 (1.001-1.035); Urine WBC 2 /hpf (0 - 3)
[2020-05-19] MEDS: oxyCODONE HCL 5MG TAB PO PRN (20:43)
[2020-05-19 22:00] VITALS: BP 120/70
[2020-05-19] MEDS ORDERED: ENOXAPARIN SOD 100 MG/1 ML SYRINGE SC SCH (22:00)
[2020-05-20 04:44] VITALS: BP 122/70
[2020-05-20 05:54] LABS: Hemoglobin 11.6 g/dL (13.5-17.5)
[2020-05-20 05:59] LABS: Hematocrit 34.3 % (41.0-53.0); Mean Corpuscular Hemoglobin 29.9 pg (28.0-32.0); Mean Corpuscular Volume 87.9 fL (80.0-100.0); Platelet Count (auto) 47 10^3/uL (140-450); Red Cell Distribution Width 18.4 % (11.8-14.3); White Blood Cell 6.3 10^3/uL (4.4-10.8)
[2020-05-20 06:01] LABS: Albumin 1.8 g/dL (3.4-5.0); Calcium 8.2 mg/dL (8.5-10.1); Potassium 3.6 mmol/L (3.5-5.1)
[2020-05-20 06:05] LABS: BUN/Creatinine Ratio 21.7; Bilirubin, Total 1.8 mg/dL (0.2-1.0); Total Protein 4.6 g/dL (6.4-8.2)
[2020-05-20 06:08] LABS: INR 1.4 (0.9-1.15)
[2020-05-20] MEDS: SODIUM CHLOR 0.9% PF (SALINE LOCK) 10ML VIAL/SYR IV SCH ×2 (06:09→14:11)
[2020-05-20 06:14] LABS: Basophils % (manual) 0 (0.0-2.0); Blast Cells 0; Eosinophils % (manual) 0 (0-7); Myelocytes % 0; Promyelocytes % 0; Reactive Lymphocytes 0
[2020-05-20] MEDS: InsuLIN REG 1unit/0.01ml Soln (100units/ml) SC SCH ×4 (06:27→20:16)
[2020-05-20] MEDS: ACCU-CHEK COMFORT CURVE STRIP VI SCH ×4 (06:27→20:19)
[2020-05-20 08:00] VITALS: BP 108/73
[2020-05-20] MEDS: SERTRALINE HCL 50 MG TAB PO SCH (09:54)
[2020-05-20] MEDS: Glucerna Carbsteady SHAKE Chocolate 8oz PO SCH ×3 (09:54→18:43)
[2020-05-20] MEDS ORDERED: ALBUMIN 25% 100 ML IV ONE (10:15)
[2020-05-20 10:21] LABS: Band Neutrophils % (manual) 6; Lymphocytes % (manual) 36 (10.0-50.0); Metamyelocytes % 6; Monocytes % (manual) 22 (0-12)
[2020-05-20] MEDS ORDERED: PANTOPRAZOLE 40 MG/10 ML VIAL INJ IV ONE (11:00)
[2020-05-20] MEDS: ESOMEPRAZOLE 40 MG/5ml VIAL INJ IV SCH (11:26)
[2020-05-20 12:00] VITALS: BP 127/94
[2020-05-20] MEDS ORDERED: PROCHLORPERAZINE EDISYLATE 5 MG/ML 2ML VIAL IV PRN (12:15)
[2020-05-20 16:00] VITALS: BP 117/74
[2020-05-20] MEDS: oxyCODONE HCL 5MG TAB PO PRN (20:14)
[2020-05-20 22:00] VITALS: BP 107/71
[2020-05-21] MEDS: SODIUM CHLOR 0.9% PF (SALINE LOCK) 10ML VIAL/SYR IV SCH ×4 (00:46→22:19)
[2020-05-21 05:04] VITALS: BP 114/77
[2020-05-21 05:23] LABS: Hematocrit 37.3 % (41.0-53.0); Hemoglobin 12.4 g/dL (13.5-17.5); Mean Corpuscular Hemoglobin 29.4 pg (28.0-32.0); Mean Corpuscular Hgb Conc. 33.2 g/dL (32.0-36.0); Mean Corpuscular Volume 88.6 fL (80.0-100.0); Platelet Count (auto) 74 10^3/uL (140-450); Red Blood Cells 4.21 10^6/uL (4.5-5.90); Red Cell Distribution Width 18.8 % (11.8-14.3); White Blood Cell 6.7 10^3/uL (4.4-10.8)
[2020-05-21 05:26] LABS: Basophils % (manual) 0 (0.0-2.0); Blast Cells 0; Promyelocytes % 0; Reactive Lymphocytes 0
[2020-05-21 05:46] LABS: Band Neutrophils % (manual) 9; Eosinophils % (manual) 4 (0-7); Lymphocytes % (manual) 32 (10.0-50.0); Monocytes % (manual) 20 (0-12); Myelocytes % 2
[2020-05-21 05:47] LABS: Metamyelocytes % 3
[2020-05-21] MEDS: ACCU-CHEK COMFORT CURVE STRIP VI SCH ×4 (06:32→20:46)
[2020-05-21] MEDS: InsuLIN REG 1unit/0.01ml Soln (100units/ml) SC SCH ×4 (06:32→20:46)
[2020-05-21 08:00] VITALS: BP 108/71
[2020-05-21] MEDS: Glucerna Carbsteady SHAKE Chocolate 8oz PO SCH ×3 (09:47→18:50)
[2020-05-21] MEDS: SERTRALINE HCL 50 MG TAB PO SCH (09:47)
[2020-05-21] MEDS: ESOMEPRAZOLE 40 MG/5ml VIAL INJ IV SCH (09:47)
[2020-05-21] MEDS ORDERED: PANTOPRAZOLE 40 MG/10 ML VIAL INJ IV SCH (10:00)
[2020-05-21 13:00] VITALS: BP 113/82
[2020-05-21 17:00] VITALS: BP 119/89
[2020-05-21] MEDS: oxyCODONE HCL 5MG TAB PO PRN (20:44)
[2020-05-21 22:00] VITALS: BP 115/74
[2020-05-22 05:00] VITALS: BP 117/72
[2020-05-22 05:32] LABS: Hematocrit 39.4 % (41.0-53.0); Hemoglobin 13.3 g/dL (13.5-17.5); Mean Corpuscular Hemoglobin 29.9 pg (28.0-32.0); Mean Corpuscular Hgb Conc. 33.7 g/dL (32.0-36.0); Mean Corpuscular Volume 88.9 fL (80.0-100.0); Platelet Count (auto) 99 10^3/uL (140-450); Red Blood Cells 4.43 10^6/uL (4.5-5.90); Red Cell Distribution Width 19.2 % (11.8-14.3); White Blood Cell 8.6 10^3/uL (4.4-10.8)
[2020-05-22 05:45] LABS: Basophils % (manual) 0 (0.0-2.0); Blast Cells 0; Promyelocytes % 0; Reactive Lymphocytes 0
[2020-05-22 05:49] LABS: INR 1.26 (0.9-1.15); Partial Thromboplastin Time 27.3 sec (23.0-31.2)
[2020-05-22 05:51] LABS: Albumin 2.1 g/dL (3.4-5.0); Calcium 8.7 mg/dL (8.5-10.1)
[2020-05-22 05:55] LABS: BUN/Creatinine Ratio 17.3; Bilirubin, Total 1.8 mg/dL (0.2-1.0)
[2020-05-22 06:01] LABS: Band Neutrophils % (manual) 11; Eosinophils % (manual) 1 (0-7); Lymphocytes % (manual) 39 (10.0-50.0); Metamyelocytes % 1; Monocytes % (manual) 20 (0-12); Myelocytes % 1
[2020-05-22] MEDS: SODIUM CHLOR 0.9% PF (SALINE LOCK) 10ML VIAL/SYR IV SCH ×2 (06:22→14:08)
[2020-05-22] MEDS: InsuLIN REG 1unit/0.01ml Soln (100units/ml) SC SCH ×2 (06:22→11:30)
[2020-05-22] MEDS: ACCU-CHEK COMFORT CURVE STRIP VI SCH ×2 (06:23→11:30)
[2020-05-22] MEDS: Glucerna Carbsteady SHAKE Chocolate 8oz PO SCH ×2 (08:30→12:01)
[2020-05-22 09:00] VITALS: BP 119/82
[2020-05-22] MEDS: ESOMEPRAZOLE 40 MG/5ml VIAL INJ IV SCH (09:26)
[2020-05-22] MEDS: SERTRALINE HCL 50 MG TAB PO SCH (09:26)
[2020-05-22] MEDS ORDERED: LIDOCAINE 2%HCL (LOCAL ANESTH.) INJ 20ML MDV ONE ×2 (11:53→11:54)
[2020-05-22] MEDS ORDERED: fentaNYL CITRATE 100 MCG/2 ML VL ONE (11:55)
[2020-05-22] MEDS ORDERED: MIDAZOLAM HCL 1MG/1ML-2 ML VIAL ONE (11:55)
[2020-05-22 13:00] VITALS: BP 110/83
[2020-05-22 13:55] VITALS: BP 110/83
== END 2020-05-22 15:00 | disposition home or self-care (01) | DRG 433 ==
LOC: ER 09:31 → OVERFLOW 11:07 → CENTRAL 11:30
PROVIDERS: ADMIT Internal Medicine; ATTEND Internal Medicine
PROC: 0W9G3ZZ Drainage of Peritoneal Cavity, Percutaneous Approach (ICD-10-PCS; principal; 2020-05-19)
PROC: 0W9G30Z Drainage of Peritoneal Cavity with Drainage Device, Percutaneous Approach (ICD-10-PCS; 2020-05-22)
PROC: BW111ZZ Fluoroscopy of Abdomen and Pelvis using Low Osmolar Contrast (ICD-10-PCS; 2020-05-22)
PROC: BW40ZZZ Ultrasonography of Abdomen (ICD-10-PCS; 2020-05-22)
DX: K74.60 Unspecified cirrhosis of liver (principal); C25.9 Malignant neoplasm of pancreas, unspecified; R18.8 Other ascites; E44.0 Moderate protein-calorie malnutrition; D68.59 Other primary thrombophilia; E11.9 Type 2 diabetes mellitus without complications; E88.09 Other disorders of plasma-protein metabolism, not elsewhere classified; E66.9 Obesity, unspecified; I10 Essential (primary) hypertension; D69.6 Thrombocytopenia, unspecified; Z85.07 Personal history of malignant neoplasm of pancreas; Z86.711 Personal history of pulmonary embolism; Z68.31 Body mass index [BMI] 31.0-31.9, adult; Z86.718 Personal history of other venous thrombosis and embolism; Z80.42 Family history of malignant neoplasm of prostate; Z80.8 Family history of malignant neoplasm of other organs or systems; Z80.6 Family history of leukemia; Z20.822 Contact with and (suspected) exposure to COVID-19
CPT/HCPCS: 10022; 36415; 71045; 76000; 76942; 80053; 81001; 82140; 82962; 83880; 84484; 85007; 85027; 85610; 85730; 86301; 86850; 86900; 86901; 87426; 96365; 96375; G0378; J1815; J2250; J2405; P9047

== ENCOUNTER 2020-05-29 01:32 | Emergency (ER) | payer BC ==
[~2020-05-29] VITALS: Ht 175.3 cm; Wt 90.7 kg
[~2020-05-29 01:32] MED LIST changes: -ALPR0.5T PO; -ASPI-498 PO; -DOCU-80 PO; +FENT25DI2 TD; -GABA-339 PO; +INSLANTI SC; +LACT10SO3 PO; -LISI-285 PO; +LORA0.5T20 PO; -METO25TA93 PO; +NUTR-345 OR; +NYS5LQ MT; +ONDA-144 PO; +OXY5T PO; -PANT40T PO; +RIVA20TA PO; +SERT100T PO; -SERT50TA PO; -SUCR1TAB22 PO
[2020-05-29] MEDS ORDERED: ACCU-CHEK COMFORT CURVE STRIP VI ONE (02:15)
[2020-05-29] MEDS ORDERED: TETANUS-DIPTH-ACEL PERTUSSIS 0.5ML SYR Tdap IM ONE (02:30)
[2020-05-29 02:53] LABS: Hematocrit 44.8 % (41.0-53.0)
[2020-05-29 02:55] LABS: Mean Corpuscular Hemoglobin 29.3 pg (28.0-32.0); Mean Corpuscular Hgb Conc. 33.4 g/dL (32.0-36.0); Mean Corpuscular Volume 87.9 fL (80.0-100.0); Platelet Count (auto) 64 10^3/uL (140-450); Red Cell Distribution Width 18.9 % (11.8-14.3)
[2020-05-29 03:08] LABS: Basophils % (manual) 0 (0.0-2.0); Blast Cells 0; Eosinophils % (manual) 0 (0-7); Metamyelocytes % 0; Myelocytes % 0; Promyelocytes % 0; Reactive Lymphocytes 0
[2020-05-29 03:16] LABS: Albumin 2.1 g/dL (3.4-5.0); BUN/Creatinine Ratio 44.2; Calcium 8.2 mg/dL (8.5-10.1); Magnesium 2.1 mg/dL (1.6-2.6); Potassium 4.2 mmol/L (3.5-5.1)
[2020-05-29 03:18] LABS: INR 1.23 (0.9-1.15); Partial Thromboplastin Time 25.1 sec (23.0-31.2)
[2020-05-29 03:19] LABS: Bilirubin, Total 1.8 mg/dL (0.2-1.0); Total Protein 5.1 g/dL (6.4-8.2)
[2020-05-29] MEDS ORDERED: LORazepam 2MG/ML-1ML VIAL IV ONE (03:30)
[2020-05-29] MEDS ORDERED: NYSTATIN (MOUTH-THROAT) 500,000 UNITS/5 ML SUSP MT ONE (04:00)
[2020-05-29 04:57] LABS: Band Neutrophils % (manual) 2; Lymphocytes % (manual) 5 (10.0-50.0); Monocytes % (manual) 1 (0-12)
[2020-05-29] MEDS ORDERED: ONDANSETRON HCL 4 MG/2 ML VIAL IV ONE (05:45)
[2020-05-29] MEDS ORDERED: levETIRAcetam 500 MG/5ML INJ IV ONE (07:21)
[2020-05-29 07:29] VITALS: BP 106/77
== END 2020-05-29 07:52 | disposition home or self-care (01) ==
LOC: ER 01:32
DX: S06.5X0A Traumatic subdural hemorrhage without loss of consciousness, initial encounter (principal); S00.81XA Abrasion of other part of head, initial encounter; S00.412A Abrasion of left ear, initial encounter; R55 Syncope and collapse; E78.5 Hyperlipidemia, unspecified; I10 Essential (primary) hypertension; Z85.07 Personal history of malignant neoplasm of pancreas; Z79.4 Long term (current) use of insulin; Z79.899 Other long term (current) drug therapy; W18.39XA Other fall on same level, initial encounter; Y93.89 Activity, other specified; Y92.89 Other specified places as the place of occurrence of the external cause; Y99.8 Other external cause status
CPT/HCPCS: 36415; 70450; 70486; 71045; 80053; 82962; 83735; 85007; 85027; 85610; 85730; 90471; 90715; 93005; 96365; 96375; 99285; J1953; J2060; J2405; J7060

== ENCOUNTER → 2020-06-08 | Outpatient (CLI) | payer BC | END | disposition home or self-care (01) | LOC: LAB 07:10 | PROVIDERS: ATTEND Internal Medicine | DX: Z01.812 Encounter for preprocedural laboratory examination (principal) | CPT/HCPCS: 36415; 82550; 82565; 84520 ==

== ENCOUNTER 2020-07-06 08:31 | Emergency (ER) | payer BC ==
[~2020-07-06] VITALS: Ht 175.3 cm; Wt 72.6 kg
[2020-07-06] MEDS ORDERED: MORPHINE SULFATE 4 MG/ML SYR/VIAL IV ONE (09:00)
[2020-07-06] MEDS ORDERED: cefTRIAXone 1GM/50ML D5W 50 ML IV ONE (09:00)
[2020-07-06 09:23] LABS: Basophils # (auto) 0.1 10 ^3/uL (0-0.2); Basophils % (auto) 1.1 % (0.0-2.0); Eosinophils # (auto) 0.5 10 ^3/uL (0-0.8); Eosinophils % (auto) 5.7 % (0.0-7.0); Hematocrit 38.1 % (41.0-53.0); Hemoglobin 12.6 g/dL (13.5-17.5); Lymphocytes # (auto) 1.7 10 ^3/uL (0.4-5.4); Lymphocytes % (auto) 18.1 % (10.0-50.0); Mean Corpuscular Hgb Conc. 33.1 g/dL (32.0-36.0); Mean Corpuscular Volume 87.6 fL (80.0-100.0); Monocytes # (auto) 1.2 10 ^3/uL (0-1.3); Monocytes % (auto) 13.3 % (0.0-12.0); Neutrophils # (auto) 5.8 10 ^3/uL (1.6-8.6); Neutrophils % (auto) 61.8 % (37.0-80.0); Nucleated Red Blood Cells % 0.1 %; Red Blood Cells 4.35 10^6/uL (4.5-5.90); Red Cell Distribution Width 17.2 % (11.8-14.3); White Blood Cell 9.4 10^3/uL (4.4-10.8)
[2020-07-06] MEDS: ONDANSETRON HCL 4 MG/2 ML VIAL IV ONE ×2 (09:37→09:40)
[2020-07-06 09:39] LABS: Albumin 2.1 g/dL (3.4-5.0); Calcium 8.6 mg/dL (8.5-10.1); INR 1.17 (0.9-1.15); Partial Thromboplastin Time 33.6 sec (23.0-31.2)
[2020-07-06] MEDS ORDERED: IOHEXOL 300 MG/ML 100ML BOTTLE IJ ONE ×2 (09:40→10:14)
[2020-07-06 09:43] LABS: BUN/Creatinine Ratio 35.7; Bilirubin, Total 0.6 mg/dL (0.2-1.0); Total Protein 5.5 g/dL (6.4-8.2)
[2020-07-06] MEDS ORDERED: fentaNYL CITRATE 100 MCG/2 ML VL IV ONE (11:45)
[2020-07-06 12:45] VITALS: BP 100/70
[2020-07-06 12:58] LABS: Urine Bacteria NONE SEEN /hpf (None Seen); Urine Blood Negative /uL (Negative); Urine WBC 1 /hpf (0 - 3)
[2020-07-06] MEDS ORDERED: HEPARIN SODIUM (PORCINE) 5000 UNITS/ML 1ML VIAL IV ONE (13:15)
== END 2020-07-06 13:29 | disposition home or self-care (01) ==
LOC: ER 08:31
DX: K74.60 Unspecified cirrhosis of liver (principal)
CPT/HCPCS: 36415; 71045; 74177; 76700; 76942; 80053; 81001; 83605; 83880; 85025; 85610; 85730; 87040; 87205; 89051; 93005; 96365; 96375; 99285; J0696; J1644; J2270; J2405; Q9967

== ENCOUNTER → 2020-08-03 | Outpatient (CLI) | payer BC | END | disposition home or self-care (01) | LOC: LAB 08:08 | PROVIDERS: ATTEND Internal Medicine | DX: Z01.812 Encounter for preprocedural laboratory examination (principal) | CPT/HCPCS: 36415; 82565; 84520 ==

== ENCOUNTER 2020-11-04 08:47 | Inpatient (IN) | payer BC ==
[2020-11-04] VITALS (8 sets, daily range): BP systolic 105–115; BP diastolic 58–68
[~2020-11-04] VITALS: Ht 175.3 cm; Wt 84.6 kg
[2020-11-04] MEDS ORDERED: ONDANSETRON HCL 4 MG/2 ML VIAL ONE (09:36)
[2020-11-04] MEDS ORDERED: ONDANSETRON HCL 4 MG/2 ML VIAL IV ONE (09:45)
[2020-11-04 09:58] LABS: Hemoglobin 7.2 g/dL (13.5-17.5); Mean Corpuscular Hemoglobin 32.7 pg (28.0-32.0); Mean Corpuscular Hgb Conc. 32.8 g/dL (32.0-36.0); Mean Corpuscular Volume 99.8 fL (80.0-100.0); Red Cell Distribution Width 17.1 % (11.8-14.3)
[2020-11-04 10:00] LABS: Basophils % (manual) 0 (0.0-2.0); Blast Cells 0; Promyelocytes % 0; Reactive Lymphocytes 0
[2020-11-04] MEDS ORDERED: ALBUMIN 25% 100 ML IV ONE ×2 (10:00→13:00)
[2020-11-04] MEDS ORDERED: PANTOPRAZOLE 40 MG/10 ML VIAL INJ IV ONE (10:00)
[2020-11-04 10:30] LABS: Albumin 1.7 g/dL (3.4-5.0); Calcium 8.1 mg/dL (8.5-10.1); Potassium 4.9 mmol/L (3.5-5.1)
[2020-11-04 10:33] LABS: BUN/Creatinine Ratio 25.9; Bilirubin, Total 0.4 mg/dL (0.2-1.0); Total Protein 4.6 g/dL (6.4-8.2)
[2020-11-04] MEDS ORDERED: MORPHINE SULFATE 4 MG/ML SYR/VIAL IV ONE (11:00)
[2020-11-04 11:15] LABS: Lactic Acid w/Reflex 2.3 mmol/L (0.4-2.0)
[2020-11-04] MEDS ORDERED: InsuLIN REG 1unit/0.01ml Soln (100units/ml) IV ONE (11:45)
[2020-11-04] MEDS ORDERED: DEXTROSE (50%) 50ML SYRG IV PRN (13:00)
[2020-11-04] MEDS ORDERED: MORPHINE SULFATE INJECTION 2 MG/ML SYRG IV PRN (13:00)
[2020-11-04] MEDS ORDERED: INSULIN LISPRO (HUMAN) 100 UNITS/ML ML SC ONE (13:00)
[2020-11-04] MEDS ORDERED: NITROGLYCERIN 0.4 MG SL TAB SL PRN (13:00)
[2020-11-04] MEDS ORDERED: SODIUM CHLORIDE 0.9% 1,000 ML IV SCH (13:00)
[2020-11-04] MEDS ORDERED: CEFTRIAXONE SODIUM 2 GM in D5W 5% 50 ML IV ONE (14:00)
[2020-11-04 14:01] LABS: Band Neutrophils % (manual) 21; Lymphocytes % (manual) 14 (10.0-50.0)
[2020-11-04 14:02] LABS: Eosinophils % (manual) 4 (0-7); Metamyelocytes % 4; Monocytes % (manual) 6 (0-12); Myelocytes % 1
[2020-11-04] MEDS ORDERED: SOD CHL 0.45% 1,000 ML IV ONE (15:45)
[2020-11-04] MEDS: SUCRALFATE 1 GM/10 ML ORAL SUSP PO SCH ×2 (17:00→20:58)
[2020-11-04] MEDS ORDERED: BACL10TA PO (17:09)
[2020-11-04] MEDS ORDERED: INSU70IN3 SC (17:09)
[2020-11-04] MEDS: ACCU-CHEK COMFORT CURVE STRIP VI SCH ×2 (18:21→23:54)
[2020-11-04] MEDS: InsuLIN REG 1unit/0.01ml Soln (100units/ml) SC SCH ×2 (18:22→23:57)
[2020-11-04 18:26] LABS: BUN/Creatinine Ratio 30.4; Calcium 8.1 mg/dL (8.5-10.1); Potassium 4.7 mmol/L (3.5-5.1)
[2020-11-04 19:49] LABS: Urine Bacteria NONE SEEN /hpf (None Seen); Urine Blood Negative /uL (Negative); Urine Hyaline Cast FEW /lpf (0 - 2); Urine Specific Gravity 1.013 (1.001-1.035); Urine WBC 1 /hpf (0 - 3)
[2020-11-04 20:03] LABS: Creatinine, Urine 68 mg/dL (30.0-125.0); Protein, Urine 23.8 mg/dL (0.0-11.9); Sodium Urine < 5 mmol/L (40-220)
[2020-11-04] MEDS: PANTOPRAZOLE 40 MG/10 ML VIAL INJ IV SCH (20:57)
[2020-11-04] MEDS: MORPHINE SULFATE INJECTION 2 MG/ML SYRG IV PRN (20:58)
[2020-11-05] VITALS (10 sets, daily range): BP systolic 99–121; BP diastolic 56–76
[2020-11-05] MEDS: ACCU-CHEK COMFORT CURVE STRIP VI SCH ×4 (06:00→23:07)
[2020-11-05] MEDS: InsuLIN REG 1unit/0.01ml Soln (100units/ml) SC SCH ×4 (06:33→23:12)
[2020-11-05] MEDS: SUCRALFATE 1 GM/10 ML ORAL SUSP PO SCH ×4 (06:40→21:28)
[2020-11-05] MEDS ORDERED: TEMAZEPAM 15 MG CAP PO PRN (08:45)
[2020-11-05] MEDS: PANTOPRAZOLE 40 MG/10 ML VIAL INJ IV SCH ×2 (08:59→21:29)
[2020-11-05] MEDS: cefTRIAXone 1GM/50ML D5W 50 ML IV SCH (08:59)
[2020-11-05] MEDS: ONDANSETRON HCL 4 MG/2 ML VIAL IV PRN ×2 (09:00→15:25)
[2020-11-05] MEDS: LACTULOSE 20Gm/30ML SOLN PO PRN (10:25)
[2020-11-05 10:56] LABS: Hematocrit 23.5 % (41.0-53.0)
[2020-11-05 10:59] LABS: Hemoglobin 8.1 g/dL (13.5-17.5); Mean Corpuscular Hemoglobin 32.1 pg (28.0-32.0); Mean Corpuscular Hgb Conc. 34.3 g/dL (32.0-36.0); Mean Corpuscular Volume 93.6 fL (80.0-100.0); Red Blood Cells 2.52 10^6/uL (4.5-5.90); Red Cell Distribution Width 19.4 % (11.8-14.3); White Blood Cell 11.6 10^3/uL (4.4-10.8)
[2020-11-05 11:04] LABS: Basophils % (manual) 0 (0.0-2.0); Blast Cells 0; Eosinophils % (manual) 0 (0-7); Metamyelocytes % 0; Myelocytes % 0; Promyelocytes % 0; Reactive Lymphocytes 0
[2020-11-05 11:10] LABS: Calcium 8.7 mg/dL (8.5-10.1); Potassium 3.4 mmol/L (3.5-5.1)
[2020-11-05 11:15] LABS: Albumin 2.8 g/dL (3.4-5.0); BUN/Creatinine Ratio 34.1; Bilirubin, Total 0.7 mg/dL (0.2-1.0); Phosphorus 4.3 mg/dL (2.5-4.90); Total Protein 5.8 g/dL (6.4-8.2)
[2020-11-05] MEDS ORDERED: FLEET ENEMA(ADULT) 135 ML PR ONE ×2 (11:15→11:19)
[2020-11-05 11:20] LABS: INR 1.08 (0.9-1.15); Partial Thromboplastin Time 23.9 sec (23.6-33.0)
[2020-11-05] MEDS ORDERED: POTASSIUM CHLORIDE 40 MEQ, LIDOCAINE 1% (LOCAL ANESTH.) 4 ML in SODIUM CHL 0.9% 250 ML IV ONE (12:15)
[2020-11-05 12:47] LABS: Band Neutrophils % (manual) 5; Lymphocytes % (manual) 13 (10.0-50.0)
[2020-11-05 12:48] LABS: Monocytes % (manual) 15 (0-12)
[2020-11-05] MEDS ORDERED: SERTRALINE HCL 50 MG TAB PO ONE (14:00)
[2020-11-05] MEDS ORDERED: ALBUMIN 25% 50 ML IV ONE (15:30)
[2020-11-05 16:19] LABS: Basophils # (auto) 0 10 ^3/uL (0-0.2); Eosinophils # (auto) 0 10 ^3/uL (0-0.8); Lymphocytes # (auto) 0.4 10 ^3/uL (0.4-5.4); Red Cell Distribution Width 19.4 % (11.8-14.3)
[2020-11-05 16:29] LABS: BUN/Creatinine Ratio 32.2; Calcium 8.1 mg/dL (8.5-10.1)
[2020-11-05 17:24] LABS: Basophils % (auto) 0.3 % (0.0-2.0); Eosinophils % (auto) 0.1 % (0.0-7.0); Hematocrit 21.8 % (41.0-53.0); Hemoglobin 7.5 g/dL (13.5-17.5); Lymphocytes % (auto) 4.1 % (10.0-50.0); Mean Corpuscular Hemoglobin 32.1 pg (28.0-32.0); Mean Corpuscular Hgb Conc. 34.2 g/dL (32.0-36.0); Mean Corpuscular Volume 93.7 fL (80.0-100.0); Monocytes % (auto) 10.3 % (0.0-12.0); Neutrophils % (auto) 85.2 % (37.0-80.0); Nucleated Red Blood Cells % 0.2 %; Red Blood Cells 2.33 10^6/uL (4.5-5.90); White Blood Cell 9.4 10^3/uL (4.4-10.8)
[2020-11-05] MEDS: LORazepam 0.5 MG TAB PO PRN (20:13)
[2020-11-06] VITALS (16 sets, daily range): BP systolic 103–129; BP diastolic 62–85
[2020-11-06] MEDS: SUCRALFATE 1 GM/10 ML ORAL SUSP PO SCH ×4 (04:25→20:42)
[2020-11-06 04:54] LABS: Basophils # (auto) 0 10 ^3/uL (0-0.2); Basophils % (auto) 0.2 % (0.0-2.0); Eosinophils # (auto) 0 10 ^3/uL (0-0.8); Eosinophils % (auto) 0.3 % (0.0-7.0); Lymphocytes # (auto) 0.6 10 ^3/uL (0.4-5.4); Monocytes # (auto) 0.8 10 ^3/uL (0-1.3); Neutrophils # (auto) 4.1 10 ^3/uL (1.6-8.6)
[2020-11-06 04:57] LABS: Hematocrit 19.7 % (41.0-53.0); Lymphocytes % (auto) 11.1 % (10.0-50.0); Mean Corpuscular Hemoglobin 31.5 pg (28.0-32.0); Mean Corpuscular Hgb Conc. 33.7 g/dL (32.0-36.0); Mean Corpuscular Volume 93.3 fL (80.0-100.0); Monocytes % (auto) 13.8 % (0.0-12.0); Neutrophils % (auto) 74.6 % (37.0-80.0); Nucleated Red Blood Cells % 0.2 %; Red Blood Cells 2.11 10^6/uL (4.5-5.90); Red Cell Distribution Width 19.5 % (11.8-14.3); White Blood Cell 5.6 10^3/uL (4.4-10.8)
[2020-11-06 05:03] LABS: Hemoglobin 6.6 g/dL (13.5-17.5)
[2020-11-06 05:11] LABS: Albumin 2.1 g/dL (3.4-5.0); Calcium 8.3 mg/dL (8.5-10.1); Magnesium 2.1 mg/dL (1.6-2.6); Potassium 3.6 mmol/L (3.5-5.1)
[2020-11-06 05:15] LABS: BUN/Creatinine Ratio 32.5; Bilirubin, Total 0.6 mg/dL (0.2-1.0); Phosphorus 4.9 mg/dL (2.5-4.90); Total Protein 4.6 g/dL (6.4-8.2)
[2020-11-06] MEDS: ACCU-CHEK COMFORT CURVE STRIP VI SCH ×4 (05:26→23:46)
[2020-11-06] MEDS: InsuLIN REG 1unit/0.01ml Soln (100units/ml) SC SCH ×4 (05:29→23:45)
[2020-11-06] MEDS ORDERED: POTASSIUM CHL 20MEQ/100ML 100 ML IV ONE (09:45)
[2020-11-06] MEDS: PANTOPRAZOLE 40 MG/10 ML VIAL INJ IV SCH ×2 (10:20→20:42)
[2020-11-06] MEDS: LACTULOSE 20Gm/30ML SOLN PO PRN (10:20)
[2020-11-06] MEDS: SERTRALINE HCL 50 MG TAB PO SCH (10:20)
[2020-11-06] MEDS: cefTRIAXone 1GM/50ML D5W 50 ML IV SCH (10:51)
[2020-11-06] MEDS: MORPHINE SULFATE INJECTION 2 MG/ML SYRG IV PRN ×2 (12:55→20:42)
[2020-11-06] MEDS: SODIUM BICARBONATE 50ML VIAL 50 ML in SOD CHL 0.45% 1,000 ML IV SCH ×2 (14:10→20:15)
[2020-11-06] MEDS: LORazepam 0.5 MG TAB PO PRN (20:41)
[2020-11-06] MEDS: FENTANYL TOP SCH (22:45)
[2020-11-07] VITALS (8 sets, daily range): BP systolic 109–127; BP diastolic 68–83
[2020-11-07 05:07] LABS: Basophils # (auto) 0 10 ^3/uL (0-0.2); Basophils % (auto) 0.2 % (0.0-2.0); Eosinophils # (auto) 0.1 10 ^3/uL (0-0.8); Eosinophils % (auto) 1.6 % (0.0-7.0); Hematocrit 24.8 % (41.0-53.0); Hemoglobin 8.7 g/dL (13.5-17.5); Lymphocytes # (auto) 0.6 10 ^3/uL (0.4-5.4); Lymphocytes % (auto) 11.2 % (10.0-50.0); Mean Corpuscular Hemoglobin 32.1 pg (28.0-32.0); Mean Corpuscular Volume 91.7 fL (80.0-100.0); Monocytes # (auto) 0.7 10 ^3/uL (0-1.3); Monocytes % (auto) 13.6 % (0.0-12.0); Neutrophils # (auto) 3.9 10 ^3/uL (1.6-8.6); Neutrophils % (auto) 73.4 % (37.0-80.0); Nucleated Red Blood Cells % 0.2 %; Red Cell Distribution Width 18.2 % (11.8-14.3); White Blood Cell 5.3 10^3/uL (4.4-10.8)
[2020-11-07] MEDS: InsuLIN REG 1unit/0.01ml Soln (100units/ml) SC SCH ×3 (05:15→18:27)
[2020-11-07] MEDS: ACCU-CHEK COMFORT CURVE STRIP VI SCH ×3 (05:16→18:27)
[2020-11-07] MEDS: SODIUM BICARBONATE 50ML VIAL 50 ML in SOD CHL 0.45% 1,000 ML IV SCH ×2 (05:21→18:28)
[2020-11-07 05:45] LABS: Albumin 2.1 g/dL (3.4-5.0); Calcium 8.1 mg/dL (8.5-10.1); Potassium 3.2 mmol/L (3.5-5.1)
[2020-11-07 05:51] LABS: BUN/Creatinine Ratio 28.3; Bilirubin, Total 0.8 mg/dL (0.2-1.0); Total Protein 4.6 g/dL (6.4-8.2)
[2020-11-07] MEDS: SUCRALFATE 1 GM/10 ML ORAL SUSP PO SCH ×4 (05:54→22:28)
[2020-11-07] MEDS ORDERED: AMIODARONE HCL 150 MG in D5W 5% 100 ML IV ONE (06:00)
[2020-11-07] MEDS ORDERED: AMIODARONE 450mg/250ml AE 250 ML IV SCH ×2 (06:15→12:15)
[2020-11-07] MEDS ORDERED: LIDOCAINE VISCOUS 2% 15ML UD ONE (08:30)
[2020-11-07] MEDS ORDERED: diphenhdrAMINE HCL 50 MG/1 ML VL ONE (08:30)
[2020-11-07] MEDS ORDERED: SODIUM CHLORIDE LOCK 10 ML ONE (08:32)
[2020-11-07] MEDS: MIDAZOLAM HCL 5 MG/ML-1ML VIAL ONE ×3 (09:21→09:31)
[2020-11-07] MEDS: fentaNYL CITRATE 100 MCG/2 ML VL ONE ×2 (09:21→09:24)
[2020-11-07] MEDS: PANTOPRAZOLE 40 MG/10 ML VIAL INJ IV SCH ×2 (10:19→22:27)
[2020-11-07] MEDS: FENTANYL TOP SCH (10:20)
[2020-11-07] MEDS: SERTRALINE HCL 50 MG TAB PO SCH (10:20)
[2020-11-07] MEDS: cefTRIAXone 1GM/50ML D5W 50 ML IV SCH (10:20)
[2020-11-07] MEDS: POTASSIUM CHLORIDE 60 MEQ, LIDOCAINE 1% (LOCAL ANESTH.) 6 ML in SODIUM CHL 0.9% 500 ML IV ONE ×2 (11:44→18:26)
[2020-11-07] MEDS ORDERED: POTASSIUM EFFERVESENT TAB 25 MEQ PO ONE (11:45)
[2020-11-07] MEDS ORDERED: ACETAMINOPHEN 325 MG TAB PO PRN ×2 (14:30→14:45)
[2020-11-07] MEDS: MORPHINE SULFATE INJECTION 2 MG/ML SYRG IV PRN (22:42)
[2020-11-08] MEDS: InsuLIN REG 1unit/0.01ml Soln (100units/ml) SC SCH ×3 (01:07→12:00)
[2020-11-08] MEDS: SODIUM BICARBONATE 50ML VIAL 50 ML in SOD CHL 0.45% 1,000 ML IV SCH (02:45)
[2020-11-08 05:00] VITALS: BP 121/70
[2020-11-08] MEDS: ACCU-CHEK COMFORT CURVE STRIP VI SCH ×3 (06:00→12:00)
[2020-11-08] MEDS: SUCRALFATE 1 GM/10 ML ORAL SUSP PO SCH ×2 (06:43→12:00)
[2020-11-08 09:00] VITALS: BP 120/67
[2020-11-08] MEDS: cefTRIAXone 1GM/50ML D5W 50 ML IV SCH (10:42)
[2020-11-08] MEDS: PANTOPRAZOLE 40 MG/10 ML VIAL INJ IV SCH (10:42)
[2020-11-08] MEDS: SERTRALINE HCL 50 MG TAB PO SCH (10:42)
[2020-11-08 11:41] LABS: Basophils # (auto) 0 10 ^3/uL (0-0.2); Basophils % (auto) 0.3 % (0.0-2.0); Eosinophils # (auto) 0.1 10 ^3/uL (0-0.8); Eosinophils % (auto) 1.3 % (0.0-7.0); Hematocrit 29.6 % (41.0-53.0); Lymphocytes # (auto) 0.3 10 ^3/uL (0.4-5.4); Lymphocytes % (auto) 6.8 % (10.0-50.0); Mean Corpuscular Hemoglobin 31.4 pg (28.0-32.0); Mean Corpuscular Hgb Conc. 33.8 g/dL (32.0-36.0); Mean Corpuscular Volume 92.8 fL (80.0-100.0); Monocytes # (auto) 0.4 10 ^3/uL (0-1.3); Monocytes % (auto) 8.5 % (0.0-12.0); Neutrophils # (auto) 4.2 10 ^3/uL (1.6-8.6); Neutrophils % (auto) 83.1 % (37.0-80.0); Red Blood Cells 3.19 10^6/uL (4.5-5.90); Red Cell Distribution Width 17.8 % (11.8-14.3); White Blood Cell 5.1 10^3/uL (4.4-10.8)
[2020-11-08 11:45] LABS: Albumin 2.4 g/dL (3.4-5.0); Potassium 3.5 mmol/L (3.5-5.1)
[2020-11-08 11:50] LABS: BUN/Creatinine Ratio 19.5; Bilirubin, Total 0.8 mg/dL (0.2-1.0); Total Protein 5.2 g/dL (6.4-8.2)
[2020-11-08 13:00] VITALS: BP 115/89
[2020-11-08 14:50] VITALS: BP 115/89
== END 2020-11-08 15:32 | disposition home or self-care (01) | DRG 432 ==
LOC: ER 08:47 → TELE 12:52 → TELE-CENTR 16:45
PROVIDERS: ADMIT Internal Medicine; ATTEND Internal Medicine
PROC: 30233N1 Transfusion of Nonautologous Red Blood Cells into Peripheral Vein, Percutaneous Approach (ICD-10-PCS; 2020-11-04)
PROC: 30233P1 Transfusion of Nonautologous Frozen Red Cells into Peripheral Vein, Percutaneous Approach (ICD-10-PCS; 2020-11-05)
PROC: 30233R1 Transfusion of Nonautologous Platelets into Peripheral Vein, Percutaneous Approach (ICD-10-PCS; 2020-11-06)
PROC: 06L38CZ Occlusion of Esophageal Vein with Extraluminal Device, Via Natural or Artificial Opening Endoscopic (ICD-10-PCS; principal; 2020-11-07 09:15)
DX: K74.60 Unspecified cirrhosis of liver (principal); E43 Unspecified severe protein-calorie malnutrition; K76.7 Hepatorenal syndrome; N17.0 Acute kidney failure with tubular necrosis; I85.11 Secondary esophageal varices with bleeding; K92.0 Hematemesis; C25.9 Malignant neoplasm of pancreas, unspecified; C78.7 Secondary malignant neoplasm of liver and intrahepatic bile duct; D62 Acute posthemorrhagic anemia; E87.1 Hypo-osmolality and hyponatremia; R18.8 Other ascites; E87.2 Acidosis; D69.6 Thrombocytopenia, unspecified; D72.829 Elevated white blood cell count, unspecified; E11.9 Type 2 diabetes mellitus without complications; I10 Essential (primary) hypertension; K72.90 Hepatic failure, unspecified without coma; E87.6 Hypokalemia; F32.9 Major depressive disorder, single episode, unspecified; Z20.822 Contact with and (suspected) exposure to COVID-19; Z79.01 Long term (current) use of anticoagulants; Z80.42 Family history of malignant neoplasm of prostate; Z80.6 Family history of leukemia; Z80.8 Family history of malignant neoplasm of other organs or systems; Z85.07 Personal history of malignant neoplasm of pancreas; Z86.711 Personal history of pulmonary embolism; Z86.718 Personal history of other venous thrombosis and embolism; Z68.26 Body mass index [BMI] 26.0-26.9, adult
CPT/HCPCS: 36415; 43244; 71045; 76775; 80048; 80053; 81001; 82140; 82270; 82570; 82962; 83036; 83605; 83690; 83735; 83935; 84100; 84156; 84300; 85007; 85025; 85027; 85610; 85730; 86850; 86900; 86901; 86920; 87426; 93005; 96365; 96375; C9113; G0378; J0696; J1815; J2001; J2250; J2405; J3480; J7060; P9047

== ENCOUNTER → 2020-11-20 | Outpatient (CLI) | payer BC ==
[~2020-11-20] MED LIST changes: +BACL10TA PO; +INSU70IN3 SC
[2020-11-20 11:07] LABS: Basophils # (auto) 0 10 ^3/uL (0-0.2); Basophils % (auto) 0.1 % (0.0-2.0); Eosinophils # (auto) 0.1 10 ^3/uL (0-0.8); Eosinophils % (auto) 1.9 % (0.0-7.0); Hematocrit 27.2 % (41.0-53.0); Hemoglobin 8.9 g/dL (13.5-17.5); Lymphocytes # (auto) 0.2 10 ^3/uL (0.4-5.4); Lymphocytes % (auto) 3.9 % (10.0-50.0); Mean Corpuscular Hemoglobin 31.2 pg (28.0-32.0); Mean Corpuscular Hgb Conc. 32.8 g/dL (32.0-36.0); Mean Corpuscular Volume 95.2 fL (80.0-100.0); Monocytes # (auto) 0.1 10 ^3/uL (0-1.3); Monocytes % (auto) 1.8 % (0.0-12.0); Neutrophils # (auto) 5.1 10 ^3/uL (1.6-8.6); Neutrophils % (auto) 92.3 % (37.0-80.0); Red Blood Cells 2.86 10^6/uL (4.5-5.90); White Blood Cell 5.5 10^3/uL (4.4-10.8)
[2020-11-20 11:37] LABS: Calcium 8.8 mg/dL (8.5-10.1); Potassium 5.4 mmol/L (3.5-5.1)
[2020-11-20 11:44] LABS: Albumin 1.9 g/dL (3.4-5.0); Bilirubin, Total 0.8 mg/dL (0.2-1.0); Total Protein 5.8 g/dL (6.4-8.2)
== END | disposition home or self-care (01) ==
LOC: LAB 10:30
PROVIDERS: ATTEND Internal Medicine
DX: E11.22 Type 2 diabetes mellitus with diabetic chronic kidney disease (principal); N18.9 Chronic kidney disease, unspecified
CPT/HCPCS: 36415; 80053; 85025

== ENCOUNTER 2020-12-04 08:24 | Emergency (ER) | payer BC ==
[~2020-12-04] VITALS: Ht 175.3 cm; Wt 74.8 kg
[2020-12-04 10:30] LABS: Albumin 2.2 g/dL (3.4-5.0); Anion Gap 6 (5-15); Blood Urea Nitrogen 52 mg/dL (7-18); Calcium 8.7 mg/dL (8.5-10.1); Carbon Dioxide 23 mmol/L (21-32); Chloride 98 mmol/L (98-107); Glucose 196 mg/dL (74-106); Sodium 127 mmol/L (136-145)
[2020-12-04 10:36] LABS: Alanine Aminotransferase 94 U/L (16-61); Alkaline Phosphatase 736 U/L (45-117); Aspartate Aminotransferase 103 U/L (15-37); BUN/Creatinine Ratio 29.5; Bilirubin, Total 0.9 mg/dL (0.2-1.0); GFR African American 53 mL/min; GFR Non-African American 44 mL/min; Total Protein 6.2 g/dL (6.4-8.2)
[2020-12-04] MEDS ORDERED: SODIUM CHLORIDE 0.9% 500 ML IV ONE (11:15)
[2020-12-04 11:46] LABS: INR 1.05 (0.9-1.15); Partial Thromboplastin Time 27.1 sec (23.6-33.0)
[2020-12-04 11:59] LABS: Basophils # (auto) 0 10 ^3/uL (0-0.2); Basophils % (auto) 0.1 % (0.0-2.0); Eosinophils # (auto) 0 10 ^3/uL (0-0.8); Eosinophils % (auto) 0.1 % (0.0-7.0); Hematocrit 36.8 % (41.0-53.0); Lymphocytes # (auto) 0.2 10 ^3/uL (0.4-5.4); Lymphocytes % (auto) 1.6 % (10.0-50.0); Mean Corpuscular Hemoglobin 30.1 pg (28.0-32.0); Mean Corpuscular Hgb Conc. 32.6 g/dL (32.0-36.0); Mean Corpuscular Volume 92.3 fL (80.0-100.0); Monocytes # (auto) 0.1 10 ^3/uL (0-1.3); Monocytes % (auto) 0.4 % (0.0-12.0); Neutrophils # (auto) 12.4 10 ^3/uL (1.6-8.6); Neutrophils % (auto) 97.8 % (37.0-80.0); Red Blood Cells 3.99 10^6/uL (4.5-5.90); Red Cell Distribution Width 16.6 % (11.8-14.3); White Blood Cell 12.7 10^3/uL (4.4-10.8)
[2020-12-04] MEDS ORDERED: PIPERACILLIN-TAZOB 3.375GM 100 ML IV ONE (12:15)
[2020-12-04 13:03] VITALS: BP 109/66
[2020-12-04] MEDS ORDERED: INSLANTI SC (15:02)
[2020-12-04] MEDS ORDERED: SERT100T PO (15:02)
[2020-12-04] MEDS ORDERED: LACT10PA2 PO (16:00)
[2020-12-04] MEDS ORDERED: BACL10TA PO (16:03)
== END 2020-12-04 13:05 | disposition home or self-care (01) ==
LOC: ER 08:24
DX: K74.60 Unspecified cirrhosis of liver (principal); E11.9 Type 2 diabetes mellitus without complications; E78.5 Hyperlipidemia, unspecified; I10 Essential (primary) hypertension; Z20.822 Contact with and (suspected) exposure to COVID-19
CPT/HCPCS: 36415; 71045; 74176; 80053; 84484; 85025; 85610; 85730; 87426; 93005; 96361; 96365; 99285; J2543; J7040

== ENCOUNTER 2020-12-06 09:07 | Day surgery (SDC) | payer BC ==
[~2020-12-06] VITALS: Ht 175.3 cm; Wt 74.8 kg
[~2020-12-06 09:07] MED LIST changes: +LACT10PA2 PO
[2020-12-06 10:28] VITALS: BP 133/68
[2020-12-06] MEDS ORDERED: LIDOCAINE 2%HCL (LOCAL ANESTH.) INJ 20ML MDV ONE (10:28)
[2020-12-06] MEDS ORDERED: IODIXANOL 320MG/ML 100ML BTL IV ONE (10:28)
[2020-12-06] MEDS ORDERED: fentaNYL CITRATE 100 MCG/2 ML VL ONE (10:28)
[2020-12-06] MEDS ORDERED: MIDAZOLAM HCL 2MG/2ML 2ml VIAL (1mg/ml) ONE (10:28)
[2020-12-06] MEDS ORDERED: HYDROcodone-ACET 5/325MG TAB PO PRN (11:30)
[2020-12-06] MEDS ORDERED: ONDANSETRON HCL 4 MG/2 ML VIAL IV PRN (11:30)
[2020-12-06] MEDS ORDERED: ACETAMINOPHEN 500 MG TAB PO PRN (11:30)
[2020-12-06] MEDS ORDERED: LORazepam 0.5 MG TAB PO ONE (12:00)
== END 2020-12-06 13:08 | disposition home or self-care (01) ==
LOC: CATH 09:07
PROVIDERS: ATTEND Internal Medicine
DX: D68.59 Other primary thrombophilia (principal); I10 Essential (primary) hypertension; E78.5 Hyperlipidemia, unspecified; F41.9 Anxiety disorder, unspecified; F32.9 Major depressive disorder, single episode, unspecified; Z86.718 Personal history of other venous thrombosis and embolism; Z86.711 Personal history of pulmonary embolism; Z87.891 Personal history of nicotine dependence; Z85.46 Personal history of malignant neoplasm of prostate; Z80.42 Family history of malignant neoplasm of prostate; Z80.6 Family history of leukemia; Z80.8 Family history of malignant neoplasm of other organs or systems; Z20.822 Contact with and (suspected) exposure to COVID-19
CPT/HCPCS: 37191; C1880; J1644; J2250; J3010; J7030; Q9967; U0003; 99152

== ENCOUNTER 2020-12-13 10:31 | Inpatient (IN) | payer BC ==
[~2020-12-13] VITALS: Ht 167.6 cm; Wt 81.0 kg
[~2020-12-13 10:31] MED LIST changes: -LACT10SO3 PO; -RIVA20TA PO; -TEMA30CA5 PO
[2020-12-13 11:42] LABS: Basophils # (auto) 0 10 ^3/uL (0-0.2); Basophils % (auto) 0.2 % (0.0-2.0); Eosinophils # (auto) 0 10 ^3/uL (0-0.8); Hematocrit 30.5 % (41.0-53.0); Hemoglobin 10.3 g/dL (13.5-17.5); Lymphocytes # (auto) 0.7 10 ^3/uL (0.4-5.4); Lymphocytes % (auto) 3.6 % (10.0-50.0); Mean Corpuscular Hemoglobin 30.6 pg (28.0-32.0); Mean Corpuscular Hgb Conc. 33.9 g/dL (32.0-36.0); Mean Corpuscular Volume 90.3 fL (80.0-100.0); Monocytes # (auto) 1.2 10 ^3/uL (0-1.3); Monocytes % (auto) 5.7 % (0.0-12.0); Neutrophils # (auto) 18.9 10 ^3/uL (1.6-8.6); Neutrophils % (auto) 90.5 % (37.0-80.0); Nucleated Red Blood Cells % 0.1 %; Red Blood Cells 3.38 10^6/uL (4.5-5.90); Red Cell Distribution Width 16.9 % (11.8-14.3); White Blood Cell 20.8 10^3/uL (4.4-10.8)
[2020-12-13] MEDS ORDERED: OCTREOTIDE ACETATE 100 MCG in SODIUM CHL 0.9% 50 ML IV ONE (11:45)
[2020-12-13 11:51] LABS: Albumin 2.1 g/dL (3.4-5.0)
[2020-12-13 11:56] LABS: BUN/Creatinine Ratio 27.8; Bilirubin, Total 0.4 mg/dL (0.2-1.0); Total Protein 6.3 g/dL (6.4-8.2)
[2020-12-13 12:02] LABS: Potassium 6.5 mmol/L (3.5-5.1)
[2020-12-13 12:39] LABS: INR 1.05 (0.9-1.15)
[2020-12-13] MEDS ORDERED: LORazepam 0.5 MG TAB PO ONE (13:00)
[2020-12-13] MEDS ORDERED: InsuLIN REG 1unit/0.01ml Soln (100units/ml) IV ONE ×2 (14:15→14:30)
[2020-12-13] MEDS ORDERED: DEXTROSE (50%) 50ML SYRG IV ONE ×2 (14:15→14:30)
[2020-12-13] MEDS ORDERED: SODIUM BICARBONATE 8.4% INJ 50ML SYRINGE IV ONE ×2 (14:15→14:30)
[2020-12-13] MEDS ORDERED: CALCIUM GLUC 1,000mg/50ml-NS 50 ML IV ONE (14:15)
[2020-12-13] MEDS ORDERED: ALBUTEROL SULF 2.5 MG/0.5ML(0.5%) NEB SOLN NEB ONE ×4 (14:15→18:15)
[2020-12-13] MEDS ORDERED: FUROSEMIDE 40 MG/4 ML VIAL IV ONE (14:30)
[2020-12-13] MEDS ORDERED: SODIUM ZIRCONIUM CYCL 10 GM PAK PO ONE (14:30)
[2020-12-13] MEDS ORDERED: DEXTROSE (50%) 50ML SYRG IV PRN (14:30)
[2020-12-13] MEDS ORDERED: NITROGLYCERIN 0.4 MG SL TAB SL PRN ×2 (14:30→15:15)
[2020-12-13] MEDS ORDERED: CALCIUM CHL 100MG/ML 1,000 MG in D5W 5% 100 ML IV ONE (14:30)
[2020-12-13] MEDS ORDERED: MORPHINE SULFATE INJECTION 2 MG/ML SYRG IV PRN ×2 (14:30→15:15)
[2020-12-13] MEDS ORDERED: SODIUM CHLORIDE 0.9% 1,000 ML IV SCH (14:45)
[2020-12-13] MEDS ORDERED: SODIUM CHLORIDE 0.9% 500 ML IV ONE (14:45)
[2020-12-13] MEDS ORDERED: CLINDAMYCIN 600MG IV 50 ML IV ONE (15:15)
[2020-12-13] MEDS ORDERED: CALCIUM ACETATE 667 MG CAP PO ONE (15:15)
[2020-12-13] MEDS ORDERED: BACLOFEN 10 MG TAB PO PRN (15:15)
[2020-12-13] MEDS ORDERED: DOCUSATE SOD 100 MG CAP PO PRN (15:15)
[2020-12-13] MEDS ORDERED: cefTRIAXone 1GM/50ML D5W 50 ML IV ONE (15:15)
[2020-12-13] MEDS ORDERED: ONDANSETRON HCL 4 MG/2 ML VIAL IV PRN (15:15)
[2020-12-13] MEDS ORDERED: oxyCODONE HCL 5MG TAB PO PRN (15:15)
[2020-12-13] MEDS ORDERED: ONDANSETRON HCL 4 MG/2 ML VIAL IV ONE (15:15)
[2020-12-13 15:39] LABS: Magnesium 1.9 mg/dL (1.6-2.6); Phosphorus 5.1 mg/dL (2.5-4.90); Uric Acid 8.4 mg/dL (3.5-7.2)
[2020-12-13 15:42] LABS: Cholesterol 223 mg/dL (< 200)
[2020-12-13] MEDS ORDERED: SODIUM BICARBONATE 8.4 % INJ 50ML VIAL IV ONE (15:45)
[2020-12-13] MEDS ORDERED: SODIUM BICARBONATE 50ML VIAL 150 ML in D5W 5% 1,000 ML IV ONE (15:45)
[2020-12-13 15:47] LABS: HDL Cholesterol 34 mg/dL (40-59); LDL Cholesterol 143 mg/dL (< 100); Triglycerides 250 mg/dL (< 150)
[2020-12-13 16:07] LABS: Potassium 5.5 mmol/L (3.5-5.1)
[2020-12-13 16:30] VITALS: BP 99/48
[2020-12-13] MEDS: LORazepam 0.5 MG TAB PO PRN (16:48)
[2020-12-13 17:00] VITALS: BP 97/55
[2020-12-13] MEDS: InsuLIN REG 1unit/0.01ml Soln (100units/ml) SC SCH ×2 (17:00→22:53)
[2020-12-13] MEDS: SUCRALFATE 1 GM/10 ML ORAL SUSP PO SCH ×2 (17:39→22:35)
[2020-12-13] MEDS: FUROSEMIDE 20 MG/2 ML VIAL IV SCH (17:51)
[2020-12-13] MEDS ORDERED: NYSTATIN (MOUTH-THROAT) 500,000 UNITS/5 ML SUSP MT SCH (18:00)
[2020-12-13] MEDS: Nutren 1.0/Fiber 8 ounces PO SCH (18:00)
[2020-12-13] MEDS ORDERED: [UNRECOGNIZED DRUG - OTHER] PO SCH (18:00)
[2020-12-13] MEDS: ACCU-CHEK COMFORT CURVE STRIP VI SCH ×2 (18:15→22:54)
[2020-12-13] MEDS: OCTREOTIDE ACETATE 500 MCG in SODIUM CHL 0.9% 99 ML IV SCH (19:02)
[2020-12-13] MEDS ORDERED: INSULIN LISPRO (HUMAN) 100 UNITS/ML ML SC ONE (19:15)
[2020-12-13 21:06] VITALS: BP 89/57
[2020-12-13 22:00] VITALS: BP 94/55
[2020-12-13] MEDS ORDERED: ASCORBIC ACID 500 MG TAB PO SCH (22:00)
[2020-12-13] MEDS: PANTOPRAZOLE 40 MG/10 ML VIAL INJ IV SCH (22:35)
[2020-12-13] MEDS: SODIUM ZIRCONIUM CYCL 10 GM PAK PO SCH (22:35)
[2020-12-14] VITALS (12 sets, daily range): BP systolic 84–112; BP diastolic 39–65
[2020-12-14 00:24] LABS: Alcohol, Urine < 3.0 mg/dL (0-10); Amphetamine Screen, Urine NEGATIVE (NEGATIVE); Barbiturate Scree,Urine NEGATIVE (NEGATIVE); Benzodiazephine Screen, Urine POSITIVE (NEGATIVE); Cocaine Screen, Urine NEGATIVE (NEGATIVE); Opiate Scree,Urine NEGATIVE (NEGATIVE); Phencyclidine Screen, Urine NEGATIVE (NEGATIVE)
[2020-12-14 00:31] LABS: Cannabinoid Screen, Urine POSITIVE (NEGATIVE)
[2020-12-14 00:48] LABS: Urine Bacteria NONE SEEN /hpf (None Seen); Urine Blood Negative /uL (Negative); Urine Specific Gravity 1.012 (1.001-1.035); Urine WBC 3 /hpf (0 - 3)
[2020-12-14] MEDS: NYSTATIN (MOUTH-THROAT) 500,000 UNITS/5 ML SUSP MT SCH ×4 (01:34→17:50)
[2020-12-14] MEDS: OCTREOTIDE ACETATE 500 MCG in SODIUM CHL 0.9% 99 ML IV SCH ×4 (01:50→21:32)
[2020-12-14] MEDS ORDERED: ALBUMIN 5% 250 ML IV ONE (02:30)
[2020-12-14] MEDS: CLINDAMYCIN 600MG IV 50 ML IV SCH ×2 (03:40→05:08)
[2020-12-14] MEDS: FUROSEMIDE 20 MG/2 ML VIAL IV SCH ×2 (06:00→17:50)
[2020-12-14] MEDS: InsuLIN REG 1unit/0.01ml Soln (100units/ml) SC SCH ×4 (06:18→21:32)
[2020-12-14] MEDS: ACCU-CHEK COMFORT CURVE STRIP VI SCH ×4 (06:18→21:31)
[2020-12-14] MEDS: SUCRALFATE 1 GM/10 ML ORAL SUSP PO SCH ×4 (06:26→21:31)
[2020-12-14] MEDS: SODIUM ZIRCONIUM CYCL 10 GM PAK PO SCH ×3 (06:28→21:31)
[2020-12-14] MEDS: CALCIUM ACETATE 667 MG CAP PO SCH ×3 (08:00→17:50)
[2020-12-14] MEDS: Nutren 1.0/Fiber 8 ounces PO SCH ×3 (08:00→17:50)
[2020-12-14] MEDS: cefTRIAXone 1GM/50ML D5W 50 ML IV SCH (08:47)
[2020-12-14] MEDS: LORazepam 0.5 MG TAB PO PRN (08:50)
[2020-12-14] MEDS ORDERED: SODIUM CHLORIDE LOCK 10 ML ONE (08:53)
[2020-12-14] MEDS ORDERED: MIDAZOLAM HCL 5 MG/ML-1ML VIAL ONE (08:53)
[2020-12-14] MEDS ORDERED: fentaNYL CITRATE 100 MCG/2 ML VL ONE (08:53)
[2020-12-14] MEDS ORDERED: LIDOCAINE VISCOUS 2% 15ML UD ONE (08:53)
[2020-12-14] MEDS ORDERED: diphenhdrAMINE HCL 50 MG/1 ML VL ONE (08:54)
[2020-12-14] MEDS: PANTOPRAZOLE 40 MG/10 ML VIAL INJ IV SCH ×2 (08:57→21:31)
[2020-12-14 09:00] LABS: Basophils # (auto) 0 10 ^3/uL (0-0.2); Eosinophils # (auto) 0.1 10 ^3/uL (0-0.8); Hemoglobin 7.2 g/dL (13.5-17.5); Lymphocytes # (auto) 0.9 10 ^3/uL (0.4-5.4); Mean Corpuscular Volume 90.2 fL (80.0-100.0)
[2020-12-14 09:02] LABS: Basophils % (auto) 0.2 % (0.0-2.0); Eosinophils % (auto) 0.4 % (0.0-7.0); Lymphocytes % (auto) 5.3 % (10.0-50.0); Mean Corpuscular Hemoglobin 30.9 pg (28.0-32.0); Mean Corpuscular Hgb Conc. 34.3 g/dL (32.0-36.0); Monocytes # (auto) 1.5 10 ^3/uL (0-1.3); Monocytes % (auto) 9.1 % (0.0-12.0); Neutrophils # (auto) 13.9 10 ^3/uL (1.6-8.6); Red Blood Cells 2.33 10^6/uL (4.5-5.90); Red Cell Distribution Width 16.7 % (11.8-14.3); White Blood Cell 16.4 10^3/uL (4.4-10.8)
[2020-12-14 09:16] LABS: INR 1.1 (0.9-1.15); Partial Thromboplastin Time 24.3 sec (23.6-33.0)
[2020-12-14 09:22] LABS: Calcium 8.3 mg/dL (8.5-10.1); Magnesium 2.2 mg/dL (1.6-2.6); Potassium 4.9 mmol/L (3.5-5.1)
[2020-12-14 09:25] LABS: BUN/Creatinine Ratio 29.2; Bilirubin, Total 0.3 mg/dL (0.2-1.0); Phosphorus 5.3 mg/dL (2.5-4.90); Total Protein 4.6 g/dL (6.4-8.2)
[2020-12-14] MEDS: SODIUM CHLORIDE 0.9% 1,000 ML IV SCH (10:36)
[2020-12-14] MEDS ORDERED: LORazepam 2MG/ML-1ML VIAL IV ONE (11:00)
[2020-12-14] MEDS ORDERED: ALBUMIN 25% 100 ML IV ONE ×2 (11:00→18:00)
[2020-12-14] MEDS: ALBUMIN 25% 100 ML IV SCH ×2 (12:04→13:00)
[2020-12-14] MEDS ORDERED: NYSTATIN (MOUTH-THROAT) 500,000 UNITS/5 ML SUSP MT PRN (19:00)
[2020-12-15] MEDS: SODIUM CHLORIDE 0.9% 1,000 ML IV SCH ×3 (00:55→20:41)
[2020-12-15 05:00] VITALS: BP 102/63
[2020-12-15] MEDS: SODIUM ZIRCONIUM CYCL 10 GM PAK PO SCH ×2 (05:28→14:06)
[2020-12-15] MEDS: SUCRALFATE 1 GM/10 ML ORAL SUSP PO SCH ×4 (05:29→20:25)
[2020-12-15] MEDS ORDERED: ACETAMINOPHEN 325 MG TAB PO PRN (05:30)
[2020-12-15] MEDS: FUROSEMIDE 20 MG/2 ML VIAL IV SCH ×2 (05:32→17:02)
[2020-12-15 06:03] LABS: Basophils # (auto) 0 10 ^3/uL (0-0.2); Basophils % (auto) 0.3 % (0.0-2.0); Eosinophils % (auto) 0.5 % (0.0-7.0); Hemoglobin 7.8 g/dL (13.5-17.5); Lymphocytes # (auto) 0.6 10 ^3/uL (0.4-5.4); Monocytes # (auto) 1.1 10 ^3/uL (0-1.3); Nucleated Red Blood Cells % 0.1 %
[2020-12-15 06:08] LABS: Eosinophils # (auto) 0 10 ^3/uL (0-0.8); Hematocrit 22.2 % (41.0-53.0); Lymphocytes % (auto) 6.1 % (10.0-50.0); Mean Corpuscular Hemoglobin 32.1 pg (28.0-32.0); Mean Corpuscular Hgb Conc. 35.2 g/dL (32.0-36.0); Mean Corpuscular Volume 91.4 fL (80.0-100.0); Monocytes % (auto) 11.9 % (0.0-12.0); Neutrophils # (auto) 7.9 10 ^3/uL (1.6-8.6); Neutrophils % (auto) 81.2 % (37.0-80.0); Red Blood Cells 2.43 10^6/uL (4.5-5.90); Red Cell Distribution Width 17.6 % (11.8-14.3); White Blood Cell 9.7 10^3/uL (4.4-10.8)
[2020-12-15 06:23] LABS: Potassium 4.6 mmol/L (3.5-5.1)
[2020-12-15 06:47] LABS: Albumin 2.4 g/dL (3.4-5.0); BUN/Creatinine Ratio 29.1; Bilirubin, Total 0.5 mg/dL (0.2-1.0); Calcium 8.6 mg/dL (8.5-10.1); Total Protein 4.6 g/dL (6.4-8.2)
[2020-12-15] MEDS: ACCU-CHEK COMFORT CURVE STRIP VI SCH ×4 (06:59→21:07)
[2020-12-15] MEDS: InsuLIN REG 1unit/0.01ml Soln (100units/ml) SC SCH ×4 (06:59→21:07)
[2020-12-15] MEDS: CALCIUM ACETATE 667 MG CAP PO SCH ×3 (08:00→17:02)
[2020-12-15 09:00] VITALS: BP 94/56
[2020-12-15] MEDS ORDERED: LIDOCAINE VISCOUS 2% 15ML UD ONE (09:13)
[2020-12-15] MEDS ORDERED: diphenhdrAMINE HCL 50 MG/1 ML VL ONE (09:13)
[2020-12-15] MEDS: OCTREOTIDE ACETATE 500 MCG in SODIUM CHL 0.9% 99 ML IV SCH ×2 (09:15→20:25)
[2020-12-15] MEDS ORDERED: FLUMAZENIL 0.1 MG/ML INJ 10ML MDV IV ONE (09:24)
[2020-12-15] MEDS ORDERED: SIMETHICONE 40 MG/0.6 ML ORAL DROP ONE (09:24)
[2020-12-15] MEDS ORDERED: ePHEDrine SULFATE 50 MG/ML AMP ONE (09:36)
[2020-12-15] MEDS: fentaNYL CITRATE 100 MCG/2 ML VL ONE ×3 (09:48→09:55)
[2020-12-15] MEDS: MIDAZOLAM HCL 5 MG/ML-1ML VIAL ONE ×3 (09:48→09:55)
[2020-12-15] MEDS: PANTOPRAZOLE 40 MG/10 ML VIAL INJ IV SCH ×2 (11:01→20:25)
[2020-12-15] MEDS: cefTRIAXone 1GM/50ML D5W 50 ML IV SCH (11:01)
[2020-12-15] MEDS ORDERED: SERTRALINE HCL 50 MG TAB PO ONE (11:15)
[2020-12-15 12:53] VITALS: BP 109/63
[2020-12-15 17:00] VITALS: BP 107/65
[2020-12-15] MEDS: LORazepam 0.5 MG TAB PO PRN (20:27)
[2020-12-15 21:23] VITALS: BP 113/62
[2020-12-16 05:30] VITALS: BP 117/76
[2020-12-16] MEDS: OCTREOTIDE ACETATE 500 MCG in SODIUM CHL 0.9% 99 ML IV SCH (05:55)
[2020-12-16] MEDS: InsuLIN REG 1unit/0.01ml Soln (100units/ml) SC SCH ×4 (06:46→22:00)
[2020-12-16] MEDS: SUCRALFATE 1 GM/10 ML ORAL SUSP PO SCH (06:46)
[2020-12-16] MEDS: ACCU-CHEK COMFORT CURVE STRIP VI SCH ×4 (06:46→22:00)
[2020-12-16 06:50] LABS: Basophils # (auto) 0.1 10 ^3/uL (0-0.2); Basophils % (auto) 0.6 % (0.0-2.0); Eosinophils # (auto) 0 10 ^3/uL (0-0.8); Eosinophils % (auto) 0.5 % (0.0-7.0); Hematocrit 27.5 % (41.0-53.0); Hemoglobin 9.1 g/dL (13.5-17.5); Lymphocytes # (auto) 0.5 10 ^3/uL (0.4-5.4); Lymphocytes % (auto) 4.9 % (10.0-50.0); Mean Corpuscular Hgb Conc. 33.1 g/dL (32.0-36.0); Mean Corpuscular Volume 90.5 fL (80.0-100.0); Monocytes % (auto) 10.2 % (0.0-12.0); Neutrophils # (auto) 8.4 10 ^3/uL (1.6-8.6); Neutrophils % (auto) 83.8 % (37.0-80.0); Red Blood Cells 3.04 10^6/uL (4.5-5.90); Red Cell Distribution Width 18.2 % (11.8-14.3)
[2020-12-16] MEDS: FUROSEMIDE 20 MG/2 ML VIAL IV SCH ×2 (06:55→17:30)
[2020-12-16 07:03] LABS: Albumin 2.2 g/dL (3.4-5.0); Calcium 8.3 mg/dL (8.5-10.1); Potassium 3.9 mmol/L (3.5-5.1)
[2020-12-16 07:05] LABS: Bilirubin, Total 0.5 mg/dL (0.2-1.0); Total Protein 4.5 g/dL (6.4-8.2)
[2020-12-16 08:31] VITALS: BP 121/82
[2020-12-16] MEDS: cefTRIAXone 1GM/50ML D5W 50 ML IV SCH (09:17)
[2020-12-16] MEDS: SERTRALINE HCL 50 MG TAB PO SCH (09:31)
[2020-12-16] MEDS: CALCIUM ACETATE 667 MG CAP PO SCH ×3 (09:31→17:31)
[2020-12-16] MEDS: PANTOPRAZOLE 40 MG TAB PO SCH ×2 (09:31→22:00)
[2020-12-16] MEDS ORDERED: CYCLOBENZAPRINE HCL 10 MG TAB PO PRN (11:00)
[2020-12-16 12:53] VITALS: BP 111/70
[2020-12-16] MEDS: SODIUM CHLORIDE 0.9% 1,000 ML IV SCH (14:20)
[2020-12-16] MEDS: LORazepam 0.5 MG TAB PO PRN (15:34)
[2020-12-16 17:06] VITALS: BP 121/75
[2020-12-16 22:00] VITALS: BP 110/73
[2020-12-17 04:57] VITALS: BP 114/75
[2020-12-17] MEDS: InsuLIN REG 1unit/0.01ml Soln (100units/ml) SC SCH (06:35)
[2020-12-17] MEDS: FUROSEMIDE 20 MG/2 ML VIAL IV SCH (06:35)
[2020-12-17] MEDS: ACCU-CHEK COMFORT CURVE STRIP VI SCH (06:35)
[2020-12-17] MEDS: CALCIUM ACETATE 667 MG CAP PO SCH (08:05)
[2020-12-17] MEDS: cefTRIAXone 1GM/50ML D5W 50 ML IV SCH (09:11)
[2020-12-17] MEDS: PANTOPRAZOLE 40 MG TAB PO SCH (09:11)
[2020-12-17] MEDS: SERTRALINE HCL 50 MG TAB PO SCH (09:11)
[2020-12-17 09:21] LABS: Basophils # (auto) 0 10 ^3/uL (0-0.2); Eosinophils # (auto) 0.1 10 ^3/uL (0-0.8); Eosinophils % (auto) 0.9 % (0.0-7.0); Lymphocytes # (auto) 0.4 10 ^3/uL (0.4-5.4); Monocytes # (auto) 0.9 10 ^3/uL (0-1.3)
[2020-12-17 09:23] LABS: Basophils % (auto) 0.4 % (0.0-2.0); Hematocrit 23.8 % (41.0-53.0); Lymphocytes % (auto) 4.7 % (10.0-50.0); Mean Corpuscular Hemoglobin 30.8 pg (28.0-32.0); Mean Corpuscular Hgb Conc. 33.8 g/dL (32.0-36.0); Mean Corpuscular Volume 91.4 fL (80.0-100.0); Monocytes % (auto) 12.5 % (0.0-12.0); Neutrophils # (auto) 6.1 10 ^3/uL (1.6-8.6); Neutrophils % (auto) 81.5 % (37.0-80.0); Red Cell Distribution Width 18.1 % (11.8-14.3); White Blood Cell 7.5 10^3/uL (4.4-10.8)
[2020-12-17 09:40] LABS: Albumin 1.6 g/dL (3.4-5.0); BUN/Creatinine Ratio 23.5; Calcium 6.8 mg/dL (8.5-10.1)
[2020-12-17 09:43] LABS: Bilirubin, Total 0.4 mg/dL (0.2-1.0); Total Protein 3.9 g/dL (6.4-8.2)
[2020-12-17 09:45] LABS: Potassium 2.9 mmol/L (3.5-5.1)
[2020-12-17] MEDS ORDERED: POTASSIUM CHL 20 Meq TABLET PO ONE (10:00)
[2020-12-17] MEDS ORDERED: MAGNESIUM OXIDE 400 MG TAB PO ONE (10:00)
== END 2020-12-17 11:30 | disposition home or self-care (01) | DRG 432 ==
LOC: ER 10:31 → TELE 14:20 → TELE-CENTR 16:33 → CENTRAL 12-16 10:51
PROVIDERS: ADMIT Hospitalist; ATTEND Internal Medicine
PROC: 30233N1 Transfusion of Nonautologous Red Blood Cells into Peripheral Vein, Percutaneous Approach (ICD-10-PCS; 2020-12-14)
PROC: 0DJ08ZZ Inspection of Upper Intestinal Tract, Via Natural or Artificial Opening Endoscopic (ICD-10-PCS; principal; 2020-12-15 09:43)
DX: K74.69 Other cirrhosis of liver (principal); E88.3 Tumor lysis syndrome; I85.11 Secondary esophageal varices with bleeding; N17.0 Acute kidney failure with tubular necrosis; C25.9 Malignant neoplasm of pancreas, unspecified; C78.7 Secondary malignant neoplasm of liver and intrahepatic bile duct; E87.1 Hypo-osmolality and hyponatremia; D62 Acute posthemorrhagic anemia; D64.9 Anemia, unspecified; E11.22 Type 2 diabetes mellitus with diabetic chronic kidney disease; E87.5 Hyperkalemia; E83.39 Other disorders of phosphorus metabolism; F41.9 Anxiety disorder, unspecified; Z20.822 Contact with and (suspected) exposure to COVID-19; I12.9 Hypertensive chronic kidney disease with stage 1 through stage 4 chronic kidney disease, or unspecified chronic kidney disease; I27.20 Pulmonary hypertension, unspecified; K31.89 Other diseases of stomach and duodenum; N18.32 Chronic kidney disease, stage 3b; F32.A Depression, unspecified; T45.1X5A Adverse effect of antineoplastic and immunosuppressive drugs, initial encounter; Z79.4 Long term (current) use of insulin; Z80.42 Family history of malignant neoplasm of prostate; Z80.6 Family history of leukemia; Z80.8 Family history of malignant neoplasm of other organs or systems; Z86.711 Personal history of pulmonary embolism; Z79.899 Other long term (current) drug therapy
CPT/HCPCS: 36415; 43235; 71045; 72146; 72148; 80053; 80061; 80307; 81001; 82306; 82570; 82962; 83036; 83735; 83880; 83970; 84100; 84132; 84295; 84443; 84484; 84550; 85025; 85610; 85730; 86301; 86850; 86900; 86901; 86920; 87040; 87086; 87426; 93005; 94640; 96361; 96374; 96375; 99291; C9113; G0378; J0696; J1642; J1815; J2250; J2405; J3490; J7060; P9047

== ENCOUNTER 2021-01-06 20:28 | Inpatient (IN) | payer BC ==
[~2021-01-06] VITALS: Ht 175.3 cm; Wt 76.2 kg
[2021-01-06] MEDS ORDERED: MORPHINE SULFATE 4 MG/ML SYR/VIAL IV ONE (21:45)
[2021-01-06] MEDS ORDERED: KETOROLAC TROMETH 30 MG/ML 1ML VIAL IV ONE (21:45)
[2021-01-06 23:05] LABS: Basophils # (auto) 0 10 ^3/uL (0-0.2); Basophils % (auto) 0.3 % (0.0-2.0); Eosinophils # (auto) 0 10 ^3/uL (0-0.8); Hematocrit 31.6 % (41.0-53.0); Hemoglobin 10.2 g/dL (13.5-17.5); Lymphocytes # (auto) 0.3 10 ^3/uL (0.4-5.4); Lymphocytes % (auto) 1.9 % (10.0-50.0); Mean Corpuscular Hemoglobin 27.6 pg (28.0-32.0); Mean Corpuscular Hgb Conc. 32.3 g/dL (32.0-36.0); Mean Corpuscular Volume 85.5 fL (80.0-100.0); Monocytes % (auto) 14.1 % (0.0-12.0); Neutrophils # (auto) 11.8 10 ^3/uL (1.6-8.6); Neutrophils % (auto) 83.7 % (37.0-80.0); Nucleated Red Blood Cells % 0.3 %; Red Cell Distribution Width 17.8 % (11.8-14.3); White Blood Cell 14.1 10^3/uL (4.4-10.8)
[2021-01-06] MEDS ORDERED: HYDROmorphone HCL 2 MG/ML VL IV ONE (23:15)
[2021-01-06 23:27] LABS: Albumin 1.3 g/dL (3.4-5.0); Calcium 9.6 mg/dL (8.5-10.1); Magnesium 1.7 mg/dL (1.6-2.6)
[2021-01-06 23:34] LABS: Bilirubin, Total 1.8 mg/dL (0.2-1.0); Total Protein 6.1 g/dL (6.4-8.2)
[2021-01-06 23:53] LABS: Potassium 6.4 mmol/L (3.5-5.1)
[2021-01-07] MEDS ORDERED: SODIUM CHLORIDE 0.9% 1,000 ML IV ONE
[2021-01-07] MEDS ORDERED: FUROSEMIDE 40 MG/4 ML VIAL IV ONE
[2021-01-07] MEDS ORDERED: CALCIUM GLUC 1,000mg/50ml-NS 50 ML IV ONE
[2021-01-07] MEDS ORDERED: InsuLIN REG 1unit/0.01ml Soln (100units/ml) IV ONE
[2021-01-07] MEDS ORDERED: cefTRIAXone 1GM/50ML D5W 50 ML IV ONE
[2021-01-07] MEDS ORDERED: DEXTROSE (50%) 50ML SYRG IV ONE
[2021-01-07] MEDS ORDERED: DEXTROSE (50%) 50ML SYRG IV PRN ×2 (01:45→09:45)
[2021-01-07] MEDS ORDERED: HYDROcodone-ACET 5/325MG TAB PO PRN (01:45)
[2021-01-07] MEDS ORDERED: DOCUSATE SOD 100 MG CAP PO PRN (01:45)
[2021-01-07] MEDS ORDERED: TEMAZEPAM 15 MG CAP PO PRN (01:45)
[2021-01-07] MEDS ORDERED: ONDANSETRON HCL 4 MG/2 ML VIAL IV PRN (01:45)
[2021-01-07] MEDS ORDERED: ACETAMINOPHEN 325 MG TAB PO PRN (01:45)
[2021-01-07] MEDS: SODIUM CHLORIDE 0.9% 1,000 ML IV SCH ×2 (03:58→17:48)
[2021-01-07] MEDS ORDERED: NITROGLYCERIN 0.4 MG SL TAB SL PRN (04:00)
[2021-01-07] MEDS ORDERED: MORPHINE SULFATE INJECTION 2 MG/ML SYRG IV PRN (04:00)
[2021-01-07 05:16] LABS: Urine Bacteria FEW /hpf (None Seen); Urine Blood Negative /uL (Negative); Urine Hyaline Cast MOD /lpf (0 - 2); Urine Mucus FEW (None Seen); Urine Specific Gravity 1.013 (1.001-1.035); Urine WBC 1 /hpf (0 - 3)
[2021-01-07] MEDS: ALBUMIN 25% 50 ML IV SCH ×3 (06:06→20:47)
[2021-01-07 06:28] LABS: Basophils # (auto) 0 10 ^3/uL (0-0.2); Basophils % (auto) 0.3 % (0.0-2.0); Eosinophils # (auto) 0 10 ^3/uL (0-0.8); Hematocrit 27.9 % (41.0-53.0); Hemoglobin 9.1 g/dL (13.5-17.5); Lymphocytes # (auto) 0.1 10 ^3/uL (0.4-5.4); Mean Corpuscular Hgb Conc. 32.7 g/dL (32.0-36.0); Mean Corpuscular Volume 85.9 fL (80.0-100.0); Monocytes # (auto) 1.8 10 ^3/uL (0-1.3); Monocytes % (auto) 15.6 % (0.0-12.0); Neutrophils # (auto) 9.7 10 ^3/uL (1.6-8.6); Neutrophils % (auto) 83.1 % (37.0-80.0); Nucleated Red Blood Cells % 0.2 %; Red Blood Cells 3.25 10^6/uL (4.5-5.90); Red Cell Distribution Width 17.4 % (11.8-14.3); White Blood Cell 11.7 10^3/uL (4.4-10.8)
[2021-01-07] MEDS: HYDROmorphone HCL 2 MG/ML VL IV PRN ×3 (06:35→22:58)
[2021-01-07 06:44] LABS: Albumin 1.2 g/dL (3.4-5.0); BUN/Creatinine Ratio 45.7; Calcium 8.9 mg/dL (8.5-10.1)
[2021-01-07 06:47] LABS: Bilirubin, Total 1.7 mg/dL (0.2-1.0); Total Protein 4.5 g/dL (6.4-8.2)
[2021-01-07] MEDS ORDERED: ACCU-CHEK COMFORT CURVE STRIP VI SCH (07:00)
[2021-01-07] MEDS ORDERED: InsuLIN REG 1unit/0.01ml Soln (100units/ml) SC SCH ×2 (07:00→22:00)
[2021-01-07 07:36] LABS: Potassium 5.8 mmol/L (3.5-5.1)
[2021-01-07] MEDS ORDERED: SODIUM ZIRCONIUM CYCL 10 GM PAK PO ONE (08:00)
[2021-01-07] MEDS ORDERED: ALBUTEROL SULF 2.5 MG/0.5ML(0.5%) NEB SOLN NEB ONE ×2 (08:15)
[2021-01-07 09:28] VITALS: BP 113/64
[2021-01-07] MEDS ORDERED: MORPHINE SULF 30 mg ER tab PO ONE (09:30)
[2021-01-07] MEDS ORDERED: TPN PER PHARMACY 0 ML IV SCH (09:30)
[2021-01-07] MEDS ORDERED: LORazepam 2MG/ML-1ML VIAL IV ONE (09:30)
[2021-01-07] MEDS ORDERED: FENT12DI TOP (09:43)
[2021-01-07] MEDS ORDERED: PROC10TA2 PO (09:43)
[2021-01-07] MEDS ORDERED: TRIA-49 PO (09:43)
[2021-01-07] MEDS ORDERED: PANT40T PO (09:43)
[2021-01-07] MEDS ORDERED: SUCR1TAB PO (09:43)
[2021-01-07] MEDS ORDERED: TAMSULOSIN HYDROCHLORIDE 0.4 MG CAP PO ONE (09:45)
[2021-01-07 09:54] LABS: Magnesium 1.9 mg/dL (1.6-2.6); Phosphorus 6.1 mg/dL (2.5-4.90)
[2021-01-07 09:58] LABS: Pre Albumin 4.6 mg/dL (20.0-40.0)
[2021-01-07] MEDS ORDERED: HEPARIN SODIUM (PORCINE) 5000 UNITS/ML 1ML VIAL SC SCH (10:00)
[2021-01-07] MEDS: FAMOTIDINE (10MG/ML) 2ML VL IV SCH (10:07)
[2021-01-07] MEDS: PANTOPRAZOLE 40 MG/10 ML VIAL INJ IV SCH ×2 (10:08→20:48)
[2021-01-07] MEDS: ACCU-CHEK COMFORT CURVE STRIP VI SCH ×3 (11:53→20:50)
[2021-01-07] MEDS: InsuLIN REG 1unit/0.01ml Soln (100units/ml) SC SCH ×2 (11:55→17:46)
[2021-01-07] MEDS ORDERED: CALCIUM ACETATE 667 MG CAP PO ONE (12:30)
[2021-01-07 12:31] VITALS: BP 106/69
[2021-01-07 13:44] LABS: BUN/Creatinine Ratio 44.6; Calcium 9.3 mg/dL (8.5-10.1); Potassium 5.5 mmol/L (3.5-5.1)
[2021-01-07 16:36] VITALS: BP 113/73
[2021-01-07] MEDS: CALCIUM ACETATE 667 MG CAP PO SCH (17:47)
[2021-01-07] MEDS: MORPHINE SULF 30 mg ER tab PO SCH (17:47)
[2021-01-07] MEDS: IPRATROPIUM BROM 0.5 MG/2.5ML INH SOL NEB SCH (18:22)
[2021-01-07] MEDS ORDERED: TPN PER PHARMACY IV NR ×7 (20:00)
[2021-01-07 22:00] VITALS: BP 116/75
[2021-01-07] MEDS ORDERED: cefTRIAXone 1GM/50ML D5W 50 ML IV SCH (22:00)
[2021-01-07 23:25] VITALS: BP 116/75
[2021-01-08] MEDS ORDERED: DEXTROSE (50%) 50ML SYRG IV SCH
[2021-01-08] MEDS: InsuLIN REG 1unit/0.01ml Soln (100units/ml) SC SCH ×3 (00:01→11:58)
[2021-01-08] MEDS: IPRATROPIUM BROM 0.5 MG/2.5ML INH SOL NEB SCH ×3 (00:20→12:32)
[2021-01-08] MEDS: MORPHINE SULF 30 mg ER tab PO SCH ×2 (01:43→11:00)
[2021-01-08] MEDS: HYDROmorphone HCL 2 MG/ML VL IV PRN ×3 (04:52→12:52)
[2021-01-08 05:00] VITALS: BP 113/79
[2021-01-08] MEDS: ACCU-CHEK COMFORT CURVE STRIP VI SCH ×3 (05:39→11:57)
[2021-01-08 06:02] LABS: Hemoglobin 8.3 g/dL (13.5-17.5); Red Blood Cells 2.95 10^6/uL (4.5-5.90)
[2021-01-08 06:04] LABS: Hematocrit 24.8 % (41.0-53.0); Mean Corpuscular Hgb Conc. 33.3 g/dL (32.0-36.0); Mean Corpuscular Volume 84.1 fL (80.0-100.0); Red Cell Distribution Width 18.2 % (11.8-14.3); White Blood Cell 12.2 10^3/uL (4.4-10.8)
[2021-01-08 06:21] LABS: Basophils % (manual) 0 (0.0-2.0); Blast Cells 0; Eosinophils % (manual) 0 (0-7); Myelocytes % 0; Promyelocytes % 0; Reactive Lymphocytes 0
[2021-01-08 06:38] LABS: Albumin 1.5 g/dL (3.4-5.0); Calcium 8.5 mg/dL (8.5-10.1); Magnesium 2.5 mg/dL (1.6-2.6); Potassium 5.1 mmol/L (3.5-5.1)
[2021-01-08 06:41] LABS: Bilirubin, Total 1.5 mg/dL (0.2-1.0); Phosphorus 3.7 mg/dL (2.5-4.90); Total Protein 4.6 g/dL (6.4-8.2)
[2021-01-08 08:13] LABS: Band Neutrophils % (manual) 3; Lymphocytes % (manual) 2 (10.0-50.0); Metamyelocytes % 1; Monocytes % (manual) 11 (0-12)
[2021-01-08] MEDS: CALCIUM ACETATE 667 MG CAP PO SCH ×2 (08:58→12:00)
[2021-01-08 09:00] VITALS: BP 116/75
[2021-01-08] MEDS ORDERED: levoFLOXacin 500MG 100 ML IV SCH (10:00)
[2021-01-08] MEDS: FAMOTIDINE (10MG/ML) 2ML VL IV SCH (10:59)
[2021-01-08] MEDS: PANTOPRAZOLE 40 MG/10 ML VIAL INJ IV SCH (11:00)
[2021-01-08] MEDS: SODIUM CHLORIDE 0.9% 1,000 ML IV SCH (11:05)
[2021-01-08 13:00] VITALS: BP 122/84
[2021-01-08] MEDS ORDERED: TAMSULOSIN HYDROCHLORIDE 0.4 MG CAP PO SCH (18:00)
== END 2021-01-08 16:02 | disposition hospice, home (50) | DRG 683 ==
LOC: EDBD 20:28 → ER 20:33 → TELE 01-07 03:51 → TELE-CENTR 01-07 09:03
PROVIDERS: ADMIT Nurse Practitioner Family; ATTEND Internal Medicine
DX: N17.0 Acute kidney failure with tubular necrosis (principal); C25.9 Malignant neoplasm of pancreas, unspecified; C78.7 Secondary malignant neoplasm of liver and intrahepatic bile duct; E87.1 Hypo-osmolality and hyponatremia; J98.11 Atelectasis; R18.8 Other ascites; D68.59 Other primary thrombophilia; D72.829 Elevated white blood cell count, unspecified; E11.65 Type 2 diabetes mellitus with hyperglycemia; Z20.822 Contact with and (suspected) exposure to COVID-19; E87.5 Hyperkalemia; Z66 Do not resuscitate; K74.60 Unspecified cirrhosis of liver; R30.0 Dysuria; R77.8 Other specified abnormalities of plasma proteins; K80.20 Calculus of gallbladder without cholecystitis without obstruction; R62.7 Adult failure to thrive; Z86.711 Personal history of pulmonary embolism
CPT/HCPCS: 36415; 70551; 71045; 74176; 80048; 80053; 81001; 82040; 82105; 82140; 82150; 82962; 83690; 83735; 84100; 84478; 84484; 85007; 85025; 85027; 86850; 86900; 86901; 87081; 87426; 93005; 94640; 94644; 96365; 96366; 96375; C9113; G0378; J0696; J1815; J1885; J1956; J3490; J7131